=== PATIENT | male | born 1975 | race Caucasian/White ===

== ENCOUNTER 2025-05-21 00:44 | Inpatient (IN) ==
[2025-05-21 01:31] LABS: HCT - HEMATOCRIT 44.2 % (42.0-52.0); HGB - HEMOGLOBIN 15.1 g/dL (14.0-18.0); MEAN PLATELET VOLUME 10.0 fL (7.4-11.4); NRBC ABSOLUTE COUNT (AUTO) 0.00 x10^3/uL; NUCLEATED RED BLOOD CELLS AUTO 0.0 /100WBC; PLT - PLATELET COUNT 190 10^3/uL (130-450); RED CELL DISTRIBUTION WIDTH 13.2 % (12.0-15.0)
[2025-05-21] MEDS: KETOROLAC 30 MG/ML VIAL IVP STA (01:39)
[2025-05-21] MEDS: DEXAMETHASONE 10 MG/ML VIAL IVP STA ×2 (01:39→02:05)
[2025-05-21] MEDS: HYDROmorphone 1 MG/ML CARPUJECT IVP STA ×4 (01:39→09:36)
[2025-05-21] MEDS: ONDANSETRON 4 MG/2 ML VIAL IVP STA (01:39)
[2025-05-21 01:48] LABS: ALT ALANINE AMINOTRANSFERASE 29.0 IU/L (10-60); AST ASPARTATE AMINOTRANSFERASE 26.0 IU/L (10-42); BUN - BLOOD UREA NITROGEN 9.0 mg/dL (6-20); CARBON DIOXIDE - CO2 29.0 mmol/L (21-32); CREATININE 0.8 mg/dL (0.6-1.3); GFR - MDRD 102.0 (>89)
--- NOTE | 2025-05-21 04:58 | ED Physician Documentation ---
PD HPI ABD PAIN Stated complaint Stated Complaint: ABD PX-UMBILICAL HERNIA Chief complaint Chief Complaint: Abd Pain History obtained from History obtained from: Patient Additional information Additional information: The patient comes to the emergency department chief complaint of pain in his hernia site that started tonight. He states it feels like it just suddenly "popped out". He cannot get it to go back in. He states that normally protrudes but he can usually push it in, but not this time. Meds/Allgy Home Medications Ambulatory Orders Medication Instructions Recorded Confirmed carbamazepine 200 mg tablet See Rx Instructions .Route .COMPLEX 05/09/24 05/22/25 duloxetine 30 mg capsule,delayed 60 mg (2 x 30 mg) PO DAILY #60 caps 03/16/25 05/22/25 release fluvoxamine 100 mg tablet 200 mg (2 x 100 mg) PO DAILY #60 03/16/25 05/22/25 tabs hydroxyzine HCl 25 mg tablet 25 mg PO DAILY 05/22/25 1 07/22/24 quetiapine 300 mg tablet (Seroquel) 600 mg PO HS 05/2205/22/25 Allergies Allergies Allergy/AdvReac Type Severity Reaction Status Date / Time No Known Drug Allergies Allergy Verified 05/21/25 07:22 PFSH Active Problems All Active Problems (Updated 05/24/25 @ 00:01 by ) BRANDON (acute kidney injury) (Acute) Acute hypoxemic respiratory failure (Acute) Troponin I above reference range (Acute) Tracheomalacia (Acute) Medical History Medical History (Updated 05/24/25 @ 00:01 by ) Sleep paralysis Thrashes as he is going to sleep. Will also thrash in the middle of sleep. Depression Bipolar 1 disorder Super obesity lap band ~2004 in [place] Anxiety HLD (hyperlipidemia) HTN (hypertension) Surgical History Surgical History (Updated 05/21/25 @ 18:36 by Key Laurent MD) Hx of laparoscopic gastric banding Family History Family History (Updated 05/21/25 @ 18:38 by Key Laurent MD) Father Cancer Mother CAD (coronary artery disease) Hip fracture due to osteoporosis Brother Diabetes Obesity Ventral hernia Sister Diabetes Ventral hernia Sister Diabetes Ventral hernia Son Ventral hernia Obesity Social History Social History (Updated 05/21/25 @ 18:41 by Key Laurent MD) Smoking Status: Never smoker Second hand tobacco smoke exposure: No Do you dip or chew tobacco?: No Do you vape?: No Patient requests smoking cessation consult: No Initiate information on smoking cessation: No Living arrangement: At home Marital Status: Living Condition: With spouse/s.o. Support Person: Yes Living Situation Details: Lives in his own home. Moved here a year ago from [facility] to live closer to his brother. Has a Durable Power of Sales Representative Trainee for Health Care?: No DPOA on file?: No Has Health Care Directive?: No Health Care Directive on file?: No DPOA / Health Care Directive - Additional Notes: to his fourth . Marissa Tapia. 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 [employer] Retired: No Service: No POLST Patient has POLST: No Exam Exam Vital Signs: Vital Signs x48h Temp Pulse Resp BP Pulse Ox 05/21/25 03:00 90 18 95 05/21/25 00:46 36.9 C 101 H 22 194/133 H 100 Constitutional no apparent distress Morbidly obese patient, appears mildly uncomfortable, otherwise no apparent distress HENMT normocephalic, head/scalp atraumatic, external nose normal and oral mucous membranes normal Eyes EOMs intact bilaterally Neck/C-Spine visual inspection normal and supple Respiratory breath sounds equal bilaterally, normal respiratory effort and clear to auscultation bilaterally Cardiovascular normal heart rate noted, regular rhythm noted and no edema Gastrointestinal abdomen soft to palpation and nontender to palpation Morbidly obese abdomen, large midline hernia around the area of the umbilicus noted with large area of protrusion. The hernia sac is soft and palpably full of bowel. Unable to reduce or even find the hernia opening. No discoloration. Genitourinary no CVA tenderness Extremities normal to inspection Neurology Alert, grossly intact Psychiatry mental status grossly normal Skin skin color normal Results Vitals Vitals: Oxygen O2 Source Mechanical ventilator Labs Labs: Microbiology 05/22/25 10:22 Blood Culture - Preliminary Blood - Right Hand NO GROWTH AFTER 1 DAY 05/22/25 10:22 Blood Culture - Preliminary Blood - Arterial Line NO GROWTH AFTER 1 DAY Laboratory Tests 05/21/25 05/21/25 05/21/25 01:25 16:01 16:30 WBC 6.2 RBC 5.16 Hgb 15.1 Hct 44.2 MCV 85.7 MCH 29.3 MCHC 34.2 RDW 13.2 Plt Count 190 MPV 10.0 Neut # (Auto) 3.9 Lymph # (Auto) 1.5 Toole # (Auto) 0.6 Eos # (Auto) 0.1 Baso # (Auto) 0.1 Absolute Nucleated RBC 0.00 Nucleated RBC % 0.0 Bld Gas Analysis Time Sample Site ABG pH ABG pCO2 ABG pO2 ABG HCO3 ABG Total CO2 ABG O2 Saturation ABG Base Excess Giancarlo Test VBG pH Ionized Calcium Respiration Rate O2 Delivery Device Vent Mode FiO2 Tidal Volume PEEP Sodium 134 L 133 L Potassium 3.8 4.2 Chloride 99 L 99 L Carbon Dioxide 29 27 Anion Gap 6.0 7.0 BUN 9 11 Creatinine 0.8 1.0 Estimated GFR (MDRD) 102 78 L Glucose 109 H 147 H Calcium 9.2 8.6 Phosphorus Magnesium Total Bilirubin 0.4 0.6 AST 26 23 ALT 29 27 Alkaline Phosphatase 66 65 Troponin I High Sens 18.5 20.4 H* Total Protein 7.1 7.3 Albumin 4.2 4.2 Globulin 2.9 3.1 Albumin/Globulin Ratio 1.4 1.4 Lipase 25 Urine Color Urine Clarity Urine pH Ur Specific [place] Urine Protein Urine Glucose (UA) Urine Ketones Urine Occult Blood Urine Nitrite Urine Bilirubin Urine Urobilinogen Ur Leukocyte Esterase Urine RBC Urine WBC Ur Squamous Epith Cells Urine Bacteria U Random Total Protein Urine Creatinine Urine Sodium Nasal Screen MRSA (PCR) NEGATIVE 05/21/25 05/21/25 05/21/25 16:31 16:37 18:25 WBC 12.1 H RBC 5.12 Hgb 14.7 Hct 45.2 MCV 88.3 MCH 28.7 MCHC 32.5 RDW 13.3 Plt Count 220 MPV 10.3 Neut # (Auto) 10.4 H Lymph # (Auto) 0.9 L Toole # (Auto) 0.7 Eos # (Auto) 0.0 Baso # (Auto) 0.0 Absolute Nucleated RBC 0.00 Nucleated RBC % 0.0 Bld Gas Analysis Time 1647 18:35 Sample Site A-LINE A-LINE ABG pH 7.32 L 7.36 ABG pCO2 52 H 48 H ABG pO2 89 86 ABG HCO3 27.2 H 26.9 H ABG Total CO2 28.8 28.3 ABG O2 Saturation 97 98 ABG Base Excess 0.9 1.1 Giancarlo Test NOT APPLICABLE NOT APPLICABLE VBG pH Ionized Calcium Respiration Rate 16 18 O2 Delivery Device VENTILATOR VENTILATOR Vent Mode ASSIST/CONTROL ASSIST/CONTROL FiO2 70.00 60.00 Tidal Volume 540 500 PEEP 5 5 Sodium Potassium Chloride Carbon Dioxide Anion Gap BUN Creatinine Estimated GFR (MDRD) Glucose Calcium Phosphorus Magnesium Total Bilirubin AST ALT Alkaline Phosphatase Troponin I High Sens Total Protein Albumin Globulin Albumin/Globulin Ratio Lipase Urine Color Urine Clarity Urine pH Ur Specific [place] Urine Protein Urine Glucose (UA) Urine Ketones Urine Occult Blood Urine Nitrite Urine Bilirubin Urine Urobilinogen Ur Leukocyte Esterase Urine RBC Urine WBC Ur Squamous Epith Cells Urine Bacteria U Random Total Protein Urine Creatinine Urine Sodium Nasal Screen MRSA (PCR) 05/21/25 05/21/25 05/22/25 19:13 20:40 04:42 WBC RBC Hgb Hct MCV MCH MCHC RDW Plt Count MPV Neut # (Auto) Lymph # (Auto) [place]ole # (Auto) Eos # (Auto) Baso # (Auto) Absolute Nucleated RBC Nucleated RBC % Bld Gas Analysis Time 2046 Sample Site A-LINE ABG pH 7.38 ABG pCO2 46 H ABG pO2 95 ABG HCO3 27.3 H ABG Total CO2 28.7 ABG O2 Saturation 99 H ABG Base Excess 1.9 Giancarlo Test NOT APPLICABLE VBG pH 7.398 Ionized Calcium 1.09 Respiration Rate 20 O2 Delivery Device VENTILATOR Vent Mode ASSIST/CONTROL FiO2 60.00 Tidal Volume 500 PEEP 5 Sodium Potassium 4.5 Chloride Carbon Dioxide Anion Gap BUN Creatinine Estimated GFR (MDRD) Glucose Calcium Phosphorus 5.4 H Magnesium 2.1 Total Bilirubin AST ALT Alkaline Phosphatase Troponin I High Sens 30.7 H* Total Protein Albumin Globulin Albumin/Globulin Ratio Lipase Urine Color Urine Clarity Urine pH Ur Specific [place] Urine Protein Urine Glucose (UA) Urine Ketones Urine Occult Blood Urine Nitrite Urine Bilirubin Urine Urobilinogen Ur Leukocyte Esterase Urine RBC Urine WBC Ur Squamous Epith Cells Urine Bacteria U Random Total Protein Urine Creatinine Urine Sodium Nasal Screen MRSA (PCR) 05/22/25 05/22/25 05/22/25 05:35 07:30 12:35 WBC 9.0 RBC 4.17 L Hgb 12.6 L Hct 37.4 L MCV 89.7 MCH 30.2 MCHC 33.7 RDW 13.7 Plt Count 171 MPV 10.4 Neut # (Auto) 6.8 H Lymph # (Auto) 1.1 L [place]ole # (Auto) 1.1 H Eos # (Auto) 0.0 Baso # (Auto) 0.0 Absolute Nucleated RBC 0.00 Nucleated RBC % 0.0 Bld Gas Analysis Time 05:43 Sample Site A-LINE ABG pH 7.39 ABG pCO2 44 ABG pO2 77 L ABG HCO3 26.5 H ABG Total CO2 27.8 ABG O2 Saturation 96 ABG Base Excess 1.3 Giancarlo Test NOT APPLICABLE VBG pH Ionized Calcium Respiration Rate 20 O2 Delivery Device VENTILATOR Vent Mode ASSIST/CONTROL FiO2 70.00 Tidal Volume 500 PEEP Sodium 133 L Potassium 4.5 Chloride 101 Carbon Dioxide 25 Anion Gap 7.0 BUN 20 Creatinine 1.7 H Estimated GFR (MDRD) 43 L Glucose 114 H Calcium 7.9 L Phosphorus Magnesium Total Bilirubin 0.8 AST 38 ALT 22 Alkaline Phosphatase 47 Troponin I High Sens 52.9 H* Total Protein 6.0 L Albumin 3.4 Globulin 2.6 Albumin/Globulin Ratio 1.3 Lipase Urine Color DARK YELLOW Urine Clarity CLEAR Urine pH 6.0 Ur Specific [place] >=1.030 H Urine Protein 30 H Urine Glucose (UA) NEGATIVE Urine Ketones NEGATIVE Urine Occult Blood MODERATE Urine Nitrite NEGATIVE Urine Bilirubin NEGATIVE Urine Urobilinogen 0.2 (NORMAL) Ur Leukocyte Esterase NEGATIVE Urine RBC 11-25 H Urine WBC 0-3 Ur Squamous Epith Cells RARE Squamous Urine Bacteria Rare U Random Total Protein 86 Urine Creatinine 209.9 Urine Sodium 11.9 Nasal Screen MRSA (PCR) PD Medical Decision Making ED course Complexity details: reviewed old records, reviewed results, considered differential and d/w patient ED course: I tried during exam to reduce the hernia, but was unable to get it to go back in. The patient was treated with Toradol and Decadron to try to bring down inflammation and he was placed in with his supine position to try to allow his hernia to reduce on its own. The pt in the meantime was worked up with labs, which were unremarkable, and CT abd/pelvis. This showed an incarcerated hernia with resultant SBO and omental infarction. Hernia opening was 3.6 cm, compared to width of herniated tissue, which was 18cm. I discussed the case with Dr. Bustos, who was healthcare consultant for surgery, and he stated he would come in and see the pt. The pt is signed out to Dr. Minor at change of shift, pending this, but with likely plan of transfer to OR. Discharge Plan Discharge Patient Disposition: ED Transfer to [facility] Condition: Serious Clinical Impression: Incarcerated hernia, SBO (small bowel obstruction) Interventions: ED Admission Assessment Last Done: 05/21/25 10:53 Vitals documented within 30 minutes of discharge?: Yes (Vital taken 15min before leaving with transport )
[2025-05-21] MEDS: HYDROmorphone 2 MG/ML VIAL IVP STA (06:31)
--- NOTE | 2025-05-21 09:30 | ED Physician Documentation ---
ED Addendum Addendum Addendum: The patient did have return of pain and was given an additional dose of hydromorphone 1 mg IV. He had not had any IV fluids overnight and so I ordered lactated Ringer's at 250/h. He is not have any nausea currently. Given his pain is from incarceration of the hernia, I also provided a antispasmodic with Levsin sublingually. The surgeon did come to see the patient. We did not have any beds available overnight and into this morning. I checked with the hospitalist and they are anticipating 1 likely discharged this afternoon in the ICU has a nurse coming in at 3 PM so they will be able to open up another ICU bed. They did check with the nursing traffic maintenance supervisor and felt that given the timing currently at 9:00, with the OR and recovery time and PACU nursing, they should be able to take the patient and placed him into the ICU subsequently at 3. Otherwise consideration would have been for transferring the patient. Discharge Plan Discharge Patient Disposition: ED Transfer to [facility] Condition: Serious Clinical Impression: Incarcerated hernia, SBO (small bowel obstruction) Prescriptions: No Action duloxetine 60 mg capsule,delayed release(DR/EC) 120 mg PO DAILY Patient Comments: TAKE 2 CAPSULES BY MOUTH ONCE DAILY carbamazepine 200 mg tablet 600 mg PO DAILY Patient Comments: 200mg in the am, 600mg at bedtime fluvoxamine 100 mg tablet 100 mg PO HS Patient Comments: TAKE 1 TABLET BY MOUTH ONCE DAILY AT BEDTIME quetiapine 200 mg tablet 400 mg PO BID Patient Comments: 200mg in the am, 600mg at HS carbamazepine [Tegretol] 200 mg tablet 800 mg PO QPM quetiapine [Seroquel] 300 mg tablet 600 mg PO DAILY Qty: 60 1RF fluvoxamine 100 mg tablet 200 mg PO DAILY Qty: 60 1RF duloxetine 30 mg capsule,delayed release(DR/EC) 60 mg PO DAILY Qty: 60 1RF carbamazepine 200 mg tablet extended release 12 hr 1,000 mg PO BID Qty: 150 1RF Print Language: Faroese Stand Alone Forms: PCP List
[2025-05-21] MEDS: LACTATED RINGERS 1,000 ML IV STA (09:36)
[2025-05-21] MEDS: HYOSCYAMINE SL 0.125 MG TABLET SL STA (09:36)
--- NOTE | 2025-05-21 09:43 | CONSULTATION NOTE ---
Referring Provider Name of Referring Provider:: Stephanie Jade MD Consult Date: 05/21/25 Chief Complaint Chief Complaint Chief Complaint: Incarcerated umbilical hernia History of Present Illness Admitted From Admitted From:: Home History Obtained From Records Reviewed: Yes History obtained from: Patient and chart Exam Limitations: None History of Present Illness HPI Comment/Other: Patient is a very pleasant 50-year-old male who is evaluated in room 9 at [facility] emergency room at the request of Dr. Layton Marques for an incarcerated umbilical hernia. The patient's been aware of the umbilical hernia for approximately 20 years and he has always been able to push it back in but yesterday he was unable to do so. The inability to push the hernia back in became associated with abdominal pain. There is been no nausea and vomiting. 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 He states up until about a year and 100 days ago he used to smoke a large amount of pot. He developed psychosis as a result. He also admits to being bipolar. He is concerned about taking his medications. I explained that he will be given his medications here in the hospital. He has never been a cigarette smoker. He drank alcohol in the past but he states that not to any great degree. He is also part of [employer] Anonymous. PFSH Active Problems All Active Problems (Updated 05/21/25 @ 09:53 by Bernardino Bustos MD) Incarcerated umbilical hernia (Acute) SBO (small bowel obstruction) (Acute) Medical History Medical History (Updated 05/21/25 @ 09:53 by Bernardino Bustos MD) Anxiety HLD (hyperlipidemia) HTN (hypertension) Social History Social History Second hand tobacco smoke exposure: No Do you dip or chew tobacco?: No Do you vape?: No Patient requests smoking cessation consult: No Initiate information on smoking cessation: No Living arrangement: At home Level: Independent Do you feel safe in your home environment?: Yes History of physical, verbal, emotional, or financial abuse?: No Frequency: Occasional Substance Use: cannabis (any form) POLST Patient has POLST: No Meds/Allgy Home Medications Ambulatory Orders Medication Instructions Recorded Confirmed carbamazepine 200 mg tablet 600 mg PO DAILY 05/09/24 1 07/21/24 duloxetine 60 mg capsule,delayed 120 mg PO DAILY 05/0903/16/25 release fluvoxamine 100 mg tablet 100 mg PO HS 05/09/24 quetiapine 200 mg tablet 400 mg PO BID 05/09/2403/16 carbamazepine 200 mg tablet 800 mg PO QPM 03/16/25 (Tegretol) carbamazepine 200 mg 1,000 mg (5 x 200 mg) PO BID #150 03/16/25 05/21/25 tablet,extended release,12 hr tabs duloxetine 30 mg capsule,delayed 60 mg (2 x 30 mg) PO DAILY #60 caps 03/16/25 05/21/25 release fluvoxamine 100 mg tablet 200 mg (2 x 100 mg) PO DAILY #60 03/16/25 tabs quetiapine 300 mg tablet (Seroquel) 600 mg (2 x 300 mg ) PO DAILY #60 03/16/25 tabs Allergies Allergies Allergy/AdvReac Type Severity Reaction Status Date / Time No Known Drug Allergies Allergy Verified 05/21/25 07:22 Results Lab Results 05/21/25 01:25 05/21/25 01:25 Other Lab Results: Lab Results x24hrs 05/21/25 Range/Units 01:25 WBC 6.2 (4.8-10.8) x10^3/uL RBC 5.16 (4.70-6.10) 10^6/uL Hgb 15.1 (14.0-18.0) g/dL Hct 44.2 (42.0-52.0) % MCV 85.7 (80.0-94.0) fL MCH 29.3 (27.0-31.0) pg MCHC 34.2 (32.0-36.0) g/dL RDW 13.2 (12.0-15.0) % Plt Count 190 (130-450) 10^3/uL MPV 10.0 (7.4-11.4) fL Neut # (Auto) 3.9 (1.5-6.6) 10^3/uL Lymph # (Auto) 1.5 (1.5-3.5) 10^3/uL [place] # (Auto) 0.6 (0.0-1.0) 10^3/uL Eos # (Auto) 0.1 (0.0-0.7) 10^3/uL Baso # (Auto) 0.1 (0.0-0.1) 10^3/uL Absolute Nucleated RBC 0.00 x10^3/uL Nucleated RBC % 0.0 /100WBC Sodium 134 L (135-145) mmol/L Potassium 3.8 (3.5-4.5) mmol/L Chloride 99 L (101-111) mmol/L Carbon Dioxide 29 (21-32) mmol/L Anion Gap 6.0 (6-13) BUN 9 (6-20) mg/dL Creatinine 0.8 (0.6-1.3) mg/dL Estimated GFR (MDRD) 102 (>89) Glucose 109 H (74-104) mg/dL Calcium 9.2 (8.5-10.3) mg/dL Total Bilirubin 0.4 (0.2-1.0) mg/dL AST 26 (10-42) IU/L ALT 29 (10-60) IU/L Alkaline Phosphatase 66 (42-121) IU/L Troponin I High Sens 18.5 (2.3-19.7) ng/L Total Protein 7.1 (6.4-8.9) g/dL Albumin 4.2 (3.2-5.5) g/dL Globulin 2.9 (2.1-4.2) g/dL Albumin/Globulin Ratio 1.4 (1.0-2.2) Lipase 25 (11-82) U/L Review of Systems CONSTITUTIONAL: No weight loss, fever, chills, weakness or fatigue. HEENT: Eyes: No visual loss, blurred vision, double vision or yellow sclerae. Ears, Nose, Throat: No hearing loss, sneezing, congestion, runny nose or sore throat. SKIN: No rash or itching. CARDIOVASCULAR: No chest pain, chest pressure or chest discomfort. No palpitations or edema. No change in cardiovascular endurance. RESPIRATORY: No shortness of breath (exertional or resting), cough or sputum. GASTROINTESTINAL: No anorexia, nausea, vomiting or diarrhea. GENITOURINARY: No dysuria, urgency, frequency, nocturia. NEUROLOGICAL: No headache, dizziness, syncope, paralysis, ataxia, numbness or tingling in the extremities. No change in bowel or bladder control. No memory loss. MUSCULOSKELETAL: No muscle, back pain, joint pain or stiffness. HEMATOLOGIC: No anemia, bleeding or bruising. LYMPHATICS: No enlarged nodes. No history of splenectomy. PSYCHIATRIC: POSITIVE bipolar and anxiety. ENDOCRINOLOGIC: No reports of sweating, cold or heat intolerance. No polyuria or polydipsia. ALLERGIES: No history of asthma, hives, eczema or rhinitis. Exam Exam Vital Signs: Vital Signs x48h Pulse Resp BP Pulse Ox 05/21/25 09:00 90 20 176/111 H 99 05/21/25 07:00 90 20 184/107 H 98 05/21/25 05:59 92 28 H 193/110 H 05/21/25 03:00 90 18 95 General: 50-year old male, appears stated age, well developed, well nourished HEENT: Normocephalic, atraumatic, extraocular movement intact, mucous membranes pink and moist, sclera anicteric and not injected, tongue midline, Mallampati 2, very poor dentition missing multiple teeth, meadows arreola mustache, meadows hair Neck: Supple without pain on palpation, mass or bruit Cardiac: Regular rate and rhythm without rub, gallop, or murmur Chest: Clear to auscultation bilaterally, distant due to body habitus Abdomen: Soft, nontender, normoactive bowel sounds, due to body habitus I cannot appreciate any hepatomegaly or splenomegaly, large incarcerated umbilical hernia with redness of the overlying skin, the hernia itself is the size of a small volleyball, there is no ecchymosis Genitourinary: Deferred Rectal: Deferred Extremities: No gross neurovascular problem, no clubbing, cyanosis or edema Gait: No gross motor deficit, 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 The indications, procedure, alternatives including not repairing the hernia, and risks including but not limited to infection, bleeding, nerve injury, and were fully explained to the patient and all questions were fully answered. I explained that I would use mesh only if there was no evidence of infection. Even with mesh, due to his body habitus there is a high risk of recurrence. If I cannot use mesh the likelihood of recurrence is 100%. I would also try and remove some of the excess skin to give him a better cosmetic result. I explained that following the surgery I did not want him lifting anything over 15 pounds for 6 weeks to allow the area to heal optimally and decrease the likelihood that the hernia would recur. Verbal and written consent was obtained. The patient in preparation for his surgery will be nothing by mouth, and receive 3 g of Ancef preoperatively for prophylaxis against surgical infection. I also asked the patient to let me know if there is any way we can make his stay at [facility] more comfortable and he stated that he would let me know. Due to the fact that there is bowel stuck within this hernia it will be important to ensure that the patient has bowel function prior to sending him home. I will have him wear an abdominal binder following this operation. 45 minutes of [id number] time was spent with the patient with over 80% spent in discussion, coordination of his care, and completion of the requisite paperwork CPT 23661 Lab Results 05/21/25 01:25 05/21/25 01:25
--- NOTE | 2025-05-21 10:02 | ANESTHESIA PROCEDURE NOTE ---
Pre-Anesthesia VS, & Labs Diagnosis Surgical Diagnosis:: incarcerated umbilical hernia Procedure Procedure: repair of incarcerated umbilical hernia Vitals Vital Signs: Temp Pulse Resp BP Pulse Ox 99.3 C H 112 H 18 162/99 H 93 05/21/25 15:25 05/21/25 16:20 05/21/25 15:24 05/21/25 15:50 05/21/25 15:50 Lab Results Current Lab Results: Laboratory Tests 05/21/25 16:37: Bld Gas Analysis Time 1647, Sample Site A-LINE, ABG pH 7.32 L, A BG pCO2 52 H, ABG pO2 89, ABG HCO3 27.2 H, ABG Total CO2 28.8, ABG O2 Saturation 97, ABG Base Excess 0.9, Giancarlo Test NOT APPLICABLE, Respiration Rate 16, O2 Delivery Device VENTILATOR, Vent Mode ASSIST/CONTROL, FiO2 70.00, Tidal Volume 540, PEEP 5 05/21/25 16:31: WBC 12.1 H, RBC 5.12, Hgb 14.7, Hct 45.2, MCV 88.3, MCH 28.7, MCHC 32.5, RDW 13.3, Plt Count 220, MPV 10.3, Neut # (Auto) 10.4 H, Lymph # (Auto) 0.9 L, Yates # (Auto) 0.7, Eos # (Auto) 0.0, Baso # (Auto) 0.0, Absolute Nucleated RBC 0.00, Nucleated RBC % 0.0 05/21/25 16:01: Sodium 133 L, Potassium 4.2, Chloride 99 L, Carbon Dioxide 27, Anion Gap 7.0, BUN 11, Creatinine 1.0, Estimated GFR (MDRD) 78 L, Glucose 147 H, Calcium 8.6, Total Bilirubin 0.6, AST 23, ALT 27, Alkaline Phosphatase 65, T roponin I High Sens 20.4 H*, Total Protein 7.3, Albumin 4.2, Globulin 3.1, Albumin/Globulin Ratio 1.4 05/21/25 01:25: WBC 6.2, RBC 5.16, Hgb 15.1, Hct 44.2, MCV 85.7, MCH 29.3, MCHC 34.2, RDW 13.2, Plt Count 190, MPV 10.0, Neut # (Auto) 3.9, Lymph # (Auto) 1.5, Yates # (Auto) 0.6, Eos # (Auto) 0.1, Baso # (Auto) 0.1, Absolute Nucleated RBC 0.00, Nucleated RBC % 0.0, Sodium 134 L, Potassium 3.8, Chloride 99 L, Carbon Dioxide 29, Anion Gap 6.0, BUN 9, Creatinine 0.8, Estimated GFR (MDRD) 102, G lucose 109 H, Calcium 9.2, Total Bilirubin 0.4, AST 26, ALT 29, Alkaline Phosphatase 66, Troponin I High Sens 18.5, Total Protein 7.1, Albumin 4.2, Globulin 2.9, Albumin/Globulin Ratio 1.4, Lipase 25 05/21/25 16:31 05/21/25 16:01 Meds/Allgy Home Medications Ambulatory Orders Medication Instructions Recorded Confirmed carbamazepine 200 mg tablet 600 mg PO DAILY 05/09/24 1 07/21/24 duloxetine 60 mg capsule,delayed 120 mg PO DAILY 05/0903/16/25 release fluvoxamine 100 mg tablet 100 mg PO HS 05/09/24 quetiapine 200 mg tablet 400 mg PO BID 05/09/2403/16 carbamazepine 200 mg tablet 800 mg PO QPM 03/16/25 (Tegretol) carbamazepine 200 mg 1,000 mg (5 x 200 mg) PO BID #150 03/16/25 05/21/25 tablet,extended release,12 hr tabs duloxetine 30 mg capsule,delayed 60 mg (2 x 30 mg) PO DAILY #60 caps 03/16/25 05/21/25 release fluvoxamine 100 mg tablet 200 mg (2 x 100 mg) PO DAILY #60 03/16/25 tabs quetiapine 300 mg tablet (Seroquel) 600 mg (2 x 300 mg ) PO DAILY #60 03/16/25 tabs Allergies Allergies Allergy/AdvReac Type Severity Reaction Status Date / Time No Known Drug Allergies Allergy Verified 05/21/25 07:22 PFSH Active Problems All Active Problems (Updated 05/21/25 @ 10:54 by ) Incarcerated hernia (Acute) Incarcerated umbilical hernia (Acute) SBO (small bowel obstruction) (Acute) Medical History Medical History (Updated 05/21/25 @ 10:54 by ) Anxiety HLD (hyperlipidemia) HTN (hypertension) Social History Social History Smoking Status: Unknown if ever smoked Second hand tobacco smoke exposure: No Do you dip or chew tobacco?: No Do you vape?: No Patient requests smoking cessation consult: No Initiate information on smoking cessation: No Living arrangement: At home Level: Independent Do you feel safe in your home environment?: Yes History of physical, verbal, emotional, or financial abuse?: No Frequency: Occasional Substance Use: cannabis (any form) POLST Patient has POLST: No Anesthesia Exam (Expanded) Exam General: Alert, Oriented x3, Cooperative and Moderate distress Dental: WNL (few missing) Mouth Opening: Greater than 4 Fingerbreadths Neck Mobility: Normal Mallampati classification: I Thyromental Distance: greater than 6 cm Respiratory: Lungs clear and Decreased breath sounds Cardiovascular: Regular rate Exam Exam Vital Signs: Vital Signs x48h Temp Pulse Resp BP Pulse Ox 05/21/25 16:20 112 H 05/21/25 15:50 105 H 162/99 H 93 05/21/25 15:40 105 H 173/99 H 90 L 05/21/25 15:35 105 H 184/111 H 88 L 05/21/25 15:30 108 H 171/86 H 88 L 05/21/25 15:25 99.3 C H 05/21/25 15:24 100 142/94 H 88 L 05/21/25 15:24 99 142/94 H 86 L 05/21/25 15:24 99 18 142/94 H 87 L 05/21/25 15:24 100 18 142/94 H 87 L 05/21/25 15:24 99 18 85 L 05/21/25 15:23 99.3 C H 97 16 85 L Plan Problem List (1) Incarcerated umbilical hernia: (2) SBO (small bowel obstruction): Plan CPT 80534 Plan Anesthesia Type: General Consent for Procedure(s) Verified and Reviewed: Yes Code Status: Attempt Resuscitation ASA Classification ASA classification: 4-Incapacitating disease Is this case an emergency?: Yes
[2025-05-21] MEDS ORDERED: BUPIVACAINE 0.5%-EPI 1:200000 PF 10 ML VIAL ONE (10:06)
[2025-05-21] MEDS ORDERED: LACTATED RINGERS 1,000 ML IV PRN (10:14)
[2025-05-21] MEDS ORDERED: MIDAZOLAM 2 MG/2 ML VIAL ONE ×4 (10:17→12:23)
[2025-05-21] MEDS ORDERED: fentaNYL 100 MCG/2 ML VIAL ONE ×2 (10:17→11:48)
[2025-05-21] MEDS ORDERED: PROPOFOL 200 MG/20 ML VIAL IVP ONE (10:17)
[2025-05-21] MEDS ORDERED: ROCURONIUM 50 MG/5 ML VIAL ONE ×3 (10:17→14:05)
[2025-05-21] MEDS ORDERED: LIDOCAINE-PF 2% 10 ML AMP SUBQ ONE (10:18)
[2025-05-21] MEDS ORDERED: SEVOFLURANE 250 ML LIQUID INH ONE (10:26)
[2025-05-21] MEDS ORDERED: SUGAMMADEX 200 MG/2 ML VIAL IVP ONE (11:08)
--- NOTE | 2025-05-21 11:31 | CT Report ---
PROCEDURE: CT Abdomen/Pelvis W INDICATIONS: hernia pain CONTRAST: 100 ML OMNI 300 TECHNIQUE: Helical axial CT of the abdomen and pelvis was obtained after an intravenous contrast injection and reformatted in multiple planes. COMPARISON: None FINDINGS: Lower chest: Unremarkable. Liver: No solid mass. Gallbladder: Unremarkable Biliary tree: No intrahepatic or extrahepatic dilation Spleen: No splenomegaly. Pancreas: No pancreatic ductal dilation. Adrenals: No adrenal nodule. Kidneys and ureters: No hydronephrosis. No renal cystic lesion which requires follow up. No solid mass. Stomach, bowel and peritoneum: Gastric lap band in place. Periumbilical ventral hernia contains a loop of colon. Upstream fecal retention. No abscess or free air. Peritoneum: No free fluid. Lymph nodes: No mesenteric or retroperitoneal adenopathy. No pelvic adenopathy. Vasculature: No infrarenal aortic aneurysm. Reproductive organs: Unremarkable. Bladder: No abnormal wall thickening. Bones: No aggressive osseous lesion. Other: Small bilateral inguinal hernias IMPRESSION: Ventral periumbilical hernia contains a loop of colon with findings concerning for obstruction. Advise surgical consultation. Note: This final report is concordant with the preliminary after-hours interpretation provided by [facility] Reviewed by: Mason Templeton MD on 05/21/2025 10:28 AM [facility] Approved by: Mason Templeton MD on 05/21/2025 10:28 AM [facility] Station ID: [id number]
[2025-05-21] MEDS ORDERED: LIDOCAINE OINTMENT 5% 35.44 GM TUBE ONE (11:34)
[2025-05-21] MEDS ORDERED: LIDOCAINE TOPICAL 4% 50 ML BOTTLE ONE (11:36)
[2025-05-21] MEDS ORDERED: DEXMEDETOMIDINE 200 MCG/2 ML VIAL ONE (12:03)
--- NOTE | 2025-05-21 15:58 | OPERATIVE REPORT ---
Operative Report General Procedure Data: Operation Date: 05/21/25 10:30 Proposed Procedures p Umbilical Hernia Repair(Not Applicable) - Bernardino Bustos MD Actual Procedures p INCARCERATED Umbilical Hernia Repair(Not Applicable) - Bernardino Bustos MD Pre-Op Diagnosis: INCARCERATED UMBILICIAL HERNIA Anesthesia Type General Case Staff Anesthesia Provider: Juliann Lam Anesthesia Provider: Hafsa Lara Case Times Procedure Start: 05/21/25 13:28 Time out: 05/21/25 13:27 Implants MESH VENTRIO 13.8CMx17.8CM Other Other Information/Narrative: Patient Name: Joey Mccann Patient date: 1975 Patent MR number: [id number] Date of procedure: 05/21/2025 Preoperative Diagnosis/Indications: Incarcerated umbilical hernia with bowel causing bowel obstruction Postoperative Diagnosis: Incarcerated umbilical hernia with colon and omentum in hernia sac causing bowel obstruction Procedure: Umbilical herniorrhaphy (the hernia defect measured 4 x 4 cm intraoperatively), CPT 08920 Fluids: 1800 mL of crystalloid, the patient left the operating room on 4 mcg per minute of Levophed EBL: 50 mL Urine output: Please refer to medical record for urine output as the Kumar was placed late in the procedure. Drains: None Findings: A 4 x 4 cm defect with transverse colon and a large amount of omentum present in the hernia sac. The hernia sac itself measured 16 cm in height and 17 cm in width and approximately 15 cm in depth Complications: None Surgeon/Dictated by: Bernardino Bustos MD Internal Security Manager: None Survey Research Teacher: Hafsa Lara CRNA assisted by Georgi Lam CRNA Anesthesia type: General Endotracheal +30 mL half percent Marcaine with epinephrine Procedure: After verbal and written informed consent was obtained detailing the operation, the alternatives the operation including no operation, risks of infection, bleeding requiring transfusion with its risks, nerve injury, and and after I met with the patient confirming the surgery and the site of surgery, the patient was brought to the operative suite and placed supine on the operating table. Great care was taken to avoid pressure points to prevent pressure necrosis or nerve injury. Monitoring devices were applied along with TEDs and pneumatic compression stockings (to prevent DVT). An intravenous line was started and anesthesia was maintained throughout the case. The patient was monitored for cardiac, blood pressure, and oxygen saturation continuously. The patient received preoperative antibiotics for surgical prophylaxis. His intubation was extraordinarily difficult. Standard general endotracheal anesthesia could not be induced due to the patient's anatomy. Attempts with an LMA were unsuccessful. The patient was then subsequently awakened and Georgi Lam CRNA came to assist. With the aid of a small bronchoscope placed through the endotracheal tube the patient was then subsequently intubated nasotracheally. He initially coughed out the tube and the tube was replaced again using the aid of a small bronchoscope and the endotracheal tube was "hubbed" at the nares. In order to secure the tube this was sutured to the septum using a 2-0 silk suture. This was then subsequently Chucho sampled about the endotracheal tube. Once this occurred the patient then experienced a episode of hypoxia and hypotension. This improved with the administration of Levophed. He was also placed on 100% oxygen. His vitals slowly improved and it was the opinion of everyone in the room that he would be safer to proceed with the operation then to try and transfer him to a higher level of care. Hafsa Lara CRNA then sedated and anesthetized the patient for the entire procedure. The patient was prepped and draped in the usual sterile manner. A "time in" then confirmed that the patient was identified with 3 identifiers (name, date, and medical record number), the history and physical was updated and in the chart, the signed consent confirming the procedure was in the chart, the patient was in the correct position, the aforementioned prophylactic measures were in place or given, we had the correct personnel and equipment to complete the procedure and that anesthesia and the surgical team were given an opportunity to express any concerns. With the agreement of everyone in the room we proceeded with the operation. An elliptial incision was made over the hernia the excess skin was removed from the hernia using Bovie electrocautery. With the skin off the hernia sac was right there. Hemostasis was obtained using Bovie electrocautery. The sac was opened and there was a large amount of omentum with distended veins and a portion of the transverse colon and the hernia sac. Please note that the hernia sac was very large measuring 15 x 16 x 17 cm. It was clear that trying to reduce the hernia contents through a small 4 x 4 cm hole would be impossible and as such I opted to resect a large portion of the omentum using serial application of the LigaSure. With less tissue having to go through the hernia defect I was able to reduce first the transverse colon and then the remaining omentum back through the defect into the abdomen and hold this in place using sponge sticks. The very large hernia sac was then dissected back to the fascial defect and excised. The fascial defect measured 4 cm transversely and 4 cm superoinferiorly. The defect was slightly superior to the umbilicus. The fat in the true umbilical hernia was transected using the Ligasure. Bovie electrocautery was then used to define the fascial defect trimming additional tissue back to the fascia proper. A swipe of the anterior abdominal wall ensured that there was no tissue adherent to the anterior abdominal wall and at this point a [address] ST hernia patch size 13.8 cm x 17.8 cm (Reference #[id number], lot number [id number], use by date 2025-08-26)was placed into the hernia defect transversely and sutured in place circumferentially with 2-0 Vicryl suture. This allowed for overlap of the mesh to the hernia defect superiorly inferiorly and transversely. The reason that I placed this transversely as I felt that the greatest strain on the wound would be transversely. Digital examination of the repair did not reveal any skipped areas. I then resected an additional 7 cm skin on the patient's left-hand side to allow for a more cosmetic curvilinear closure. This was done primarily using Bovie electrocautery. Hemostasis was obtained using Bovie electrocautery. I placed sutures to line up the skin having a distance twice in order to place skin sophie. Once the sophie were in place the sutures were removed. At this point a timeout was performed that confirmed that all counts were correct x2, the procedure that was performed, the blood loss, the IV fluids administered, the patient's condition, and any concerns of the operating team had. Dressings were applied and having tolerated the procedure well, the patient was taken to the intensive care unit. It should be noted that during the performance of this surgery as well as afterwards the patient had a nasogastric tube placed, Kumar placed, central line placed. And due to the difficulties with his intubation and control of his blood pressure it was felt to be much safer to admit him to the intensive care unit. Please note that the aforementioned procedures were either performed by anesthesia or nursing. Additionally once the patient is fully awake and prior to extubation he should have an abdominal binder placed to distribute the pressure and decrease likelihood of wound dehiscence or evisceration. Today's documentation has been created with the assistance of voice recognition software. Therefore, it may contain anomalous punctuation, anomalous independent mis-recognitions, word substitutions, insertions or omissions. Occasional wrong-word or phonetically similar substitutions may also occur all due to the inherent limitations of voice recognition software. I have attempted to correct the above but I recommend that the chart be read carefully to recognize, using context, where the substitutions, insertions or omissions may have occurred.
[2025-05-21] MEDS: ceFAZolin (3G) 3 GM in SODIUM CHLORIDE 0.9% MINIBAG 100 ML IV ONE (16:14)
[2025-05-21] MEDS ORDERED: PROPOFOL 500 MG/50 ML 1,000 MG/100 ML VIAL ONE (16:27)
[2025-05-21 16:38] LABS: ALT ALANINE AMINOTRANSFERASE 27.0 IU/L (10-60); AST ASPARTATE AMINOTRANSFERASE 23.0 IU/L (10-42); BUN - BLOOD UREA NITROGEN 11.0 mg/dL (6-20); CARBON DIOXIDE - CO2 27.0 mmol/L (21-32); CREATININE 1.0 mg/dL (0.6-1.3); GFR - MDRD 78.0 (>89)
[2025-05-21 16:46] LABS: HCT - HEMATOCRIT 45.2 % (42.0-52.0); HGB - HEMOGLOBIN 14.7 g/dL (14.0-18.0); MEAN PLATELET VOLUME 10.3 fL (7.4-11.4); NRBC ABSOLUTE COUNT (AUTO) 0.00 x10^3/uL; NUCLEATED RED BLOOD CELLS AUTO 0.0 /100WBC; PLT - PLATELET COUNT 220 10^3/uL (130-450); RED CELL DISTRIBUTION WIDTH 13.3 % (12.0-15.0)
[2025-05-21 16:47] LABS: ABG BASE EXCESS 0.9 mmol/L (-2.0-3.0); ABG FRACTION OF INSPIRED O2 70.00; ABG HCO3 27.2 mmol/L (22.0-26.0); ABG MODE OF VENTILATION ASSIST/CONTROL; ABG OXYGEN SATURATION 97 % (95-98); ABG PCO2 52 mmHg (34-45); ABG PH 7.32 (7.35-7.45); ABG PO2 89 mmHg (83-108); ABG RESPIRATORY RATE 16 b/min; ABG TCO2 28.8 mmol/L (21.0-29.0)
--- NOTE | 2025-05-21 16:51 | MISCELLANEOUS PROVIDER NOTE ---
Miscellaneous Provider Note - Note: I spoke with his Fantasma at [phone] and explained his surgery, clinical course, expected recovery, and his postoperative instructions regarding not lifting anything heavier than 20 pounds for 6 weeks or approximately the first of the new year. She vocalized understanding and thanked me for my care.
[2025-05-21] MEDS: DEXMEDETOMIDINE 400 MCG/100 ML 100 ML IV SCH (16:56)
[2025-05-21] MEDS: PROPOFOL 1000 MG/100 ML 1,000 MG/100 ML BOTTLE IV SCH (16:56)
[2025-05-21] MEDS: fentaNYL 2,500 MCG/250 ML 2,500 MCG/250 ML BAG IV SCH (16:57)
[2025-05-21] MEDS: PANTOPRAZOLE 40 MG VIAL IVP SCH (17:03)
[2025-05-21] MEDS: NS W/20 MEQ KCL 1,000 ML IV SCH (17:07)
[2025-05-21] MEDS: SODIUM CHLORIDE FLUSH 0.9% 10 ML SYRINGE IVP SCH (17:07)
--- NOTE | 2025-05-21 17:08 | ANESTHESIA POST OP EVALUATION ---
Anesthesia Post Eval Post Anesthesia Eval Vitals: Last Vital Signs Temp 99.3 C H 05/21/25 15:25 Pulse 112 H 05/21/25 16:20 Resp 18 05/21/25 15:24 BP 162/99 H 05/21/25 15:50 Pulse Ox 93 05/21/25 15:50 CV Function Including HR & BP: Stable Pain Control: Satisfactory Nausea & Vomiting: Negative Mental Status: Other (sedated, intubated) Respiratory Status: Airway Patent Hydration Status: Satisfactory Anesthesia Complications: None
--- NOTE | 2025-05-21 17:09 | XRAY Report ---
PROCEDURE: XR Post ET Tube 1V CXR INDICATIONS: Intubation, central line, NG tube TECHNIQUE: Single frontal view of the chest was obtained COMPARISON: None FINDINGS: Instrumentation: Endotracheal tube 5.9 cm above the addison. Nasogastric tube in the stomach. Right IJ central venous line tip in the upper SVC. Heart size, mediastinum and pulmonary vasculature: Heart size enlarged. Moderate vascular congestion Lungs and pleural spaces: Obscuration of the left mid diaphragm Osseous structures: Unremarkable IMPRESSION: Lines and tubes in good position. Cardiomegaly, moderate vascular congestion and left pleural effusion Reviewed by: Mason Templeton MD on 05/21/2025 4:05 PM [facility] Approved by: Mason Templeton MD on 05/21/2025 4:05 PM [facility] Station ID: [id number]
--- NOTE | 2025-05-21 18:19 | CONSULTATION NOTE ---
Referring Provider Name of Referring Provider:: Bernardino Bustos Consult Date: 05/21/25 Chief Complaint Chief Complaint Chief Complaint: umbilical pain in hernia History of Present Illness Admitted From Admitted From:: home History Obtained From Records Reviewed: Sravan [facility] Exam Limitations: he's intubated, on precedex, propofol, and fentanyl History of Present Illness HPI Comment/Other: This was a relatively urgent/emergent case. He presented to the emergency department with abrupt onset of umbilical pain at hernia site. Apparently he has a longstanding umbilical hernia and is used to pushing it back in but this time he could not. The pain was getting increasingly worse so he brought himself to the emergency room approximately midnight. From there he is care was turned over to Dr. Minor who then called general surgery. He was afebrile at 36.9. Heart rate 101. Respirations 22. Blood pressure 194/133. He is a superobese uncomfortable white male according to the ER notes. Normal respiration. Normal heart rate. Morbidly obese abdomen with a large midline hernia around the area of the umbilicus with larger protrusion. The hernia sac was soft and palpably full of bowel. Unable to reduce or find the hernia opening. White cell count was 6.2, hemoglobin 15.1. Troponin 18.5. BUN/creatinine normal. CT of the abdomen was done and reviewed by 1030 this morning. He has a ventral periumbilical hernia with a loop of colon suggesting obstruction. General surgery saw the patient. The OR team called in for after- hours case. This is where it became quite urgent. He is superobese, thick neck, and 2 attempts were made at endotracheal intubation. With these attempts, he became hypotensive in the 60s systolic. Difficult to ventilate but not successfully intubated. Another attempt was made in this time through nasotracheal intubation. He was temporarily on Levophed. Taken to the OR and able to come off Levophed, and airway maintained. In the OR he was found to have an incarcerated umbilical hernia with colon on the omentum in the hernia sac causing bowel obstruction. He underwent an umbilical herniorrhaphy, and a mesh placed. He had a 4 x 4 centimeter defect. The hernia sac itself measured 16 cm in height, 17 cm in width and approximately 15 cm in depth. I did also get a history from his . He has been 4 times and he and his just moved to this area a year ago. He describes him as having severe bulimia as a teenager. 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 They discovered this when he had a Lap-Band procedure about 20 years ago. He had difficulty with intubation and they actually had to do some tracheal surgery to repair of the trachea around the time of that Lap- Band. He is from [facility]. They moved here about a [place] ago [place] [facility] was getting very stressful for his mental health and it [place] much [place] He was seeing his mental health provider on a regular basis until very recently. He has to get new insurance and a new primary care provider. He has no history of recreational substance abuse. On review of systems he has the tracheal issue as above. He has chronic dyspnea on exertion and cannot walk very far before he gets short of breath. But no history of cardiac disease nor does he have a history of congestive heart failure. He has no problems with his lungs in the form of asthma or emphysema. He does not cough on a regular basis nor does he have phlegm. His medication for his mental illness leaves him severely constipated. So when he stopped going to the bathroom 3 days ago they thought it was his medications. Did did not realize that his increasing distention, abdominal pain was the bowel obstruction. He took 16 different doses of laxative in the last 2 days. He has occasional urinary incontinence. Increasing frequency of stream. Joint pain is mainly in his knees and he will "yelp" when he gets out of a chair. Legs are huge, large, and they always look swollen to her. He has no history of falls, seizures, suicidal ideation. She thinks his memory is okay. He is completely independent with activities of daily living. Upon transfer from OR to ICU, the patient was pulling on lines, and needed several doses of propofol 100 mg to maintain sedation. We then added Precedex, and fentanyl and he has been sedated since then and I have ordered 2-point restraints of the upper extremity. Meds/Allgy Home Medications Ambulatory Orders Medication Instructions Recorded Confirmed carbamazepine 200 mg tablet 600 mg PO DAILY 05/09/24 1 07/21/24 duloxetine 60 mg capsule,delayed 120 mg PO DAILY 05/0903/16/25 release fluvoxamine 100 mg tablet 100 mg PO HS 05/09/24 quetiapine 200 mg tablet 400 mg PO BID 05/09/2403/16 carbamazepine 200 mg tablet 800 mg PO QPM 03/16/25 (Tegretol) carbamazepine 200 mg 1,000 mg (5 x 200 mg) PO BID #150 03/16/25 05/21/25 tablet,extended release,12 hr tabs duloxetine 30 mg capsule,delayed 60 mg (2 x 30 mg) PO DAILY #60 caps 03/16/25 05/21/25 release fluvoxamine 100 mg tablet 200 mg (2 x 100 mg) PO DAILY #60 03/16/25 tabs quetiapine 300 mg tablet (Seroquel) 600 mg (2 x 300 mg ) PO DAILY #60 03/16/25 tabs Allergies Allergies Allergy/AdvReac Type Severity Reaction Status Date / Time No Known Drug Allergies Allergy Verified 05/21/25 07:22 PFSH Active Problems All Active Problems (Updated 05/21/25 @ 18:58 by Key Laurent MD) Troponin I above reference range (Acute) Tracheomalacia (Acute) Ventilator dependence (Acute) Incarcerated umbilical hernia (Acute) SBO (small bowel obstruction) (Acute) Medical History Medical History (Updated 05/21/25 @ 18:58 by Key Laurent MD) Sleep paralysis Thrashes as he is going to sleep. Will also thrash in the middle of sleep. Depression Bipolar 1 disorder Super obesity lap band ~2004 in [place] Anxiety HLD (hyperlipidemia) HTN (hypertension) Surgical History Surgical History (Updated 05/21/25 @ 18:36 by Key Laurent MD) Hx of laparoscopic gastric banding Family History Family History (Updated 05/21/25 @ 18:38 by Key Laurent MD) Father Cancer Mother CAD (coronary artery disease) Hip fracture due to osteoporosis Brother Diabetes Obesity Ventral hernia Sister Diabetes Ventral hernia Sister Diabetes Ventral hernia Son Ventral hernia Obesity Social History Social History (Updated 05/21/25 @ 18:41 by Key Laurent MD) Smoking Status: Never smoker Second hand tobacco smoke exposure: No Do you dip or chew tobacco?: No Do you vape?: No Patient requests smoking cessation consult: No Initiate information on smoking cessation: No Living arrangement: At home Marital Status: Living Condition: With spouse/s.o. Support Person: Yes Living Situation Details: Lives in his own home. Moved here a year ago from [facility] to live closer to his brother. Has a Durable Power of Asset Availability Leader for Health Care?: No DPOA on file?: No Has Health Care Directive?: No Health Care Directive on file?: No DPOA / Health Care Directive - Additional Notes: to his fourth . Fantasma Tapia. 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4-11.4) fL Neut # (Auto) 10.4 H (1.5-6.6) 10^3/uL Lymph # (Auto) 0.9 L (1.5-3.5) 10^3/uL Phelps # (Auto) 0.7 (0.0-1.0) 10^3/uL Eos # (Auto) 0.0 (0.0-0.7) 10^3/uL Baso # (Auto) 0.0 (0.0-0.1) 10^3/uL Absolute Nucleated RBC 0.00 x10^3/uL Nucleated RBC % 0.0 /100WBC Bld Gas Analysis Time 1647 Sample Site A-LINE ABG pH 7.32 L (7.35-7.45) ABG pCO2 52 H (34-45) mmHg ABG pO2 89 (83-108) mmHg ABG HCO3 27.2 H (22.0-26.0) mmol/L ABG Total CO2 28.8 (21.0-29.0) mmol/L ABG O2 Saturation 97 (95-98) % ABG Base Excess 0.9 (-2.0-3.0) mmol/L Giancarlo Test NOT APPLICABLE Respiration Rate 16 b/min O2 Delivery Device VENTILATOR Vent Mode ASSIST/CONTROL FiO2 70.00 Tidal Volume 540 mL PEEP 5 cmH2O Sodium 133 L (135-145) mmol/L Potassium 4.2 (3.5-4.5) mmol/L Chloride 99 L (101-111) mmol/L Carbon Dioxide 27 (21-32) mmol/L Anion Gap 7.0 (6-13) BUN 11 (6-20) mg/dL Creatinine 1.0 (0.6-1.3) mg/dL Estimated GFR (MDRD) 78 L (>89) Glucose 147 H (74-104) mg/dL Calcium 8.6 (8.5-10.3) mg/dL Total Bilirubin 0.6 (0.2-1.0) mg/dL AST 23 (10-42) IU/L ALT 27 (10-60) IU/L Alkaline Phosphatase 65 (42-121) IU/L Troponin I High Sens 20.4 H* (2.3-19.7) ng/L Total Protein 7.3 (6.4-8.9) g/dL Albumin 4.2 (3.2-5.5) g/dL Globulin 3.1 (2.1-4.2) g/dL Albumin/Globulin Ratio 1.4 (1.0-2.2) Lipase (11-82) U/L 05/21/25 Range/Units 01:25 WBC 6.2 (4.8-10.8) x10^3/uL RBC 5.16 (4.70-6.10) 10^6/uL Hgb 15.1 (14.0-18.0) g/dL Hct 44.2 (42.0-52.0) % MCV 85.7 (80.0-94.0) fL MCH 29.3 (27.0-31.0) pg MCHC 34.2 (32.0-36.0) g/dL RDW 13.2 (12.0-15.0) % Plt Count 190 (130-450) 10^3/uL MPV 10.0 (7.4-11.4) fL Neut # (Auto) 3.9 (1.5-6.6) 10^3/uL Lymph # (Auto) 1.5 (1.5-3.5) 10^3/uL Phelps # (Auto) 0.6 (0.0-1.0) 10^3/uL Eos # (Auto) 0.1 (0.0-0.7) 10^3/uL Baso # (Auto) 0.1 (0.0-0.1) 10^3/uL Absolute Nucleated RBC 0.00 x10^3/uL Nucleated RBC % 0.0 /100WBC Bld Gas Analysis Time Sample Site ABG pH (7.35-7.45) ABG pCO2 (34-45) mmHg ABG pO2 (83-108) mmHg ABG HCO3 (22.0-26.0) mmol/L ABG Total CO2 (21.0-29.0) mmol/L ABG O2 Saturation (95-98) % ABG Base Excess (-2.0-3.0) mmol/L Giancarlo Test Respiration Rate b/min O2 Delivery Device Vent Mode FiO2 Tidal Volume mL PEEP cmH2O Sodium 134 L (135-145) mmol/L Potassium 3.8 (3.5-4.5) mmol/L Chloride 99 L (101-111) mmol/L Carbon Dioxide 29 (21-32) mmol/L Anion Gap 6.0 (6-13) BUN 9 (6-20) mg/dL Creatinine 0.8 (0.6-1.3) mg/dL Estimated GFR (MDRD) 102 (>89) Glucose 109 H (74-104) mg/dL Calcium 9.2 (8.5-10.3) mg/dL Total Bilirubin 0.4 (0.2-1.0) mg/dL AST 26 (10-42) IU/L ALT 29 (10-60) IU/L Alkaline Phosphatase 66 (42-121) IU/L Troponin I High Sens 18.5 (2.3-19.7) ng/L Total Protein 7.1 (6.4-8.9) g/dL Albumin 4.2 (3.2-5.5) g/dL Globulin 2.9 (2.1-4.2) g/dL Albumin/Globulin Ratio 1.4 (1.0-2.2) Lipase 25 (11-82) U/L Diagnostic Imaging Results Diagnostic Imaging Results: positive Final report reviewed EKG Results EKG Interpreted Independently: No Review of Systems Status of ROS: unobtainable due to endotracheal tube Exam Exam Vital Signs: Vital Signs x48h Temp Pulse Resp BP Pulse Ox 05/21/25 16:20 112 H 05/21/25 15:50 105 H 162/99 H 93 05/21/25 15:40 105 H 173/99 H 90 L 05/21/25 15:35 105 H 184/111 H 88 L 05/21/25 15:30 108 H 171/86 H 88 L 05/21/25 15:25 99.3 C H 05/21/25 15:24 100 142/94 H 88 L 05/21/25 15:24 99 142/94 H 86 L 05/21/25 15:24 99 18 142/94 H 87 L 05/21/25 15:24 100 18 142/94 H 87 L 05/21/25 15:24 99 18 85 L 05/21/25 15:23 99.3 C H 97 16 85 L Morbidly obese white male laying on his back with an ENT tube in place. Sewn in. On a ventilator. Drips noted hanging or Precedex, fentanyl, propofol. I have ordered upper extremity restraints and those are in place. Constitutional no apparent distress HENMT normocephalic and head/scalp atraumatic Eyes Pupils pinpoint, no response at this time to light reflex Neck/C-Spine Neck is too thick to assess for JVD. I do not hear bruits Chest inspection of chest normal Respiratory Lungs have coarse upper airway breath sounds, equal in all lung triplett. I only listened anteriorly. Cardiovascular normal heart rate noted and regular rhythm noted Distant cardiac tones and I do not hear murmur Gastrointestinal A hugely protuberant obese pannus. Vertical striae. Vertical incision site with bloody bandage. Skin discoloration from Betadine. No redness or heat at the incision or rest of abdomen. Early slightly pink and Chandni in intertriginous folds. Genitourinary Kumar in place. Testicles edematous. Extremities Huge limbs. Calves and feet look puffy and doughy but they are nonpitting. Onychomycosis. Calluses of both feet on the soles of the feet Neurology Pupils pinpoint. Vent dependent due to my sedation. Prior to restraints, the patient was moving all of his extremities with vigorous force.Could not follow commands. Skin skin color normal, no rash and no lesions Conclusion/Plan Problem List (1) Ventilator dependence: Plan: The patient is intubated to protect his airway and not because of any intrinsic lung disease by history or exam. He has peak pressures are 27 so I do not think he has pulmonary hypertension or interstitial lung disease. My goal is to keep him sedated and intubated overnight to protect his wound and to protect his airway. Tomorrow morning we will wean and start extubation parameters. Initial vent settings were AC with a tidal volume of 540, rate of 16, PEEP of 5, and 60% FiO2. His blood gases showed a pH 7.32, pCO2 52, pO2 89. I adjusted the vent settings to a tidal volume of 500, rate of 18. And I am awaiting repeat blood gases. I am currently adjusting ventilatory settings to get his pCO2 below 45. I am awaiting his repeat blood gases and will adjust appropriately. (2) Incarcerated umbilical hernia: Plan: Causing small bowel obstruction. He is postop day 0. Surgery to follow. They are anticipating that he should have a quick turnaround time and may be able to be discharged by tomorrow or the next day depending on his airway status and his response to pain.Once he is awake medicine such as Zofran for nausea, ketorolac for pain, Dilaudid for pain, and oxycodone p.o. for pain will be used. (3) SBO (small bowel obstruction): Plan: Due to incarcerated umbilical hernia. Postop day 0. See above. (4) Tracheomalacia: Plan: I explained to his that he really needs to note that is a problem. This would have been helpful for unfortunate anesthesiologist prior to intubation. Currently has nasotracheal intubation. Hopefully to be extubated tomorrow. (5) Super obesity: Plan: This may delay his progression after surgery. Hopefully we can extubate him, he will be assisted to a sitting position and standing position. (6) Bipolar 1 disorder: Plan: If bowel function returns to normal by tomorrow, he is at home medications of carbamazepine, duloxetine, fluvoxamine and Seroquel need to be resumed. (7) Troponin I above reference range: Plan: His states that he does not have any cardiac history. No history of CHF or angina. Initial troponin was 18.5 in the ER at 1:30 in the morning. Repeat at 4:00 this afternoon was 20.4. I will repeat again before midnight and another 1 tomorrow morning.I am not seeing an EKG scanned into the EMR and I will order that for completeness sake. Lab Results Lab results reviewed: Yes 05/21/25 16:31 05/21/25 16:01 Diagnostic Imaging Results Diagnostic Imaging Results: positive Final report reviewed EKG Results EKG Interpreted Independently: No
[2025-05-21 18:36] LABS: ABG BASE EXCESS 1.1 mmol/L (-2.0-3.0); ABG HCO3 26.9 mmol/L (22.0-26.0); ABG OXYGEN SATURATION 98 % (95-98); ABG PCO2 48 mmHg (34-45); ABG PH 7.36 (7.35-7.45); ABG PO2 86 mmHg (83-108); ABG TCO2 28.3 mmol/L (21.0-29.0)
[2025-05-21 18:38] LABS: ABG MODE OF VENTILATION ASSIST/CONTROL
[2025-05-21 18:39] LABS: ABG FRACTION OF INSPIRED O2 60.00; ABG RESPIRATORY RATE 18 b/min
[2025-05-21 20:47] LABS: ABG BASE EXCESS 1.9 mmol/L (-2.0-3.0); ABG HCO3 27.3 mmol/L (22.0-26.0); ABG MODE OF VENTILATION ASSIST/CONTROL; ABG OXYGEN SATURATION 99 % (95-98); ABG PCO2 46 mmHg (34-45); ABG PH 7.38 (7.35-7.45); ABG PO2 95 mmHg (83-108); ABG RESPIRATORY RATE 20 b/min; ABG TCO2 28.7 mmol/L (21.0-29.0)
[2025-05-21 20:48] LABS: ABG FRACTION OF INSPIRED O2 60.00
[2025-05-22 04:50] LABS: VBG PH 7.398 (7.31-7.41)
[2025-05-22 05:05] LABS: PHOSPHORUS 5.4 mg/dL (2.5-5.0)
[2025-05-22 05:46] LABS: ABG OXYGEN SATURATION 96 % (95-98); ABG PCO2 44 mmHg (34-45); ABG PH 7.39 (7.35-7.45); ABG PO2 77 mmHg (83-108)
[2025-05-22 05:47] LABS: ABG BASE EXCESS 1.3 mmol/L (-2.0-3.0); ABG FRACTION OF INSPIRED O2 70.00; ABG HCO3 26.5 mmol/L (22.0-26.0); ABG MODE OF VENTILATION ASSIST/CONTROL; ABG RESPIRATORY RATE 20 b/min; ABG TCO2 27.8 mmol/L (21.0-29.0)
[2025-05-22] MEDS: SODIUM CHLORIDE FLUSH 0.9% 10 ML SYRINGE IVP PRN (07:37)
[2025-05-22 07:39] LABS: HCT - HEMATOCRIT 37.4 % (42.0-52.0); HGB - HEMOGLOBIN 12.6 g/dL (14.0-18.0); MEAN PLATELET VOLUME 10.4 fL (7.4-11.4); NRBC ABSOLUTE COUNT (AUTO) 0.00 x10^3/uL; NUCLEATED RED BLOOD CELLS AUTO 0.0 /100WBC; PLT - PLATELET COUNT 171 10^3/uL (130-450); RED CELL DISTRIBUTION WIDTH 13.7 % (12.0-15.0)
[2025-05-22 08:01] LABS: ALT ALANINE AMINOTRANSFERASE 22.0 IU/L (10-60); AST ASPARTATE AMINOTRANSFERASE 38.0 IU/L (10-42); BUN - BLOOD UREA NITROGEN 20.0 mg/dL (6-20); CARBON DIOXIDE - CO2 25.0 mmol/L (21-32); CREATININE 1.7 mg/dL (0.6-1.3); GFR - MDRD 43.0 (>89)
[2025-05-22] MEDS: ENOXAPARIN 40 MG/0.4 ML SYRINGE SUBQ SCH ×2 (08:25→21:18)
--- NOTE | 2025-05-22 09:52 | PROVIDER PROGRESS NOTE ---
<Statement entered by Jacoby Guerrero, DO - 05/22/25 17:12> I was present with the [employer] student on the hospitalist service. I personally verified the history of present illness and performed the physical examination and medical decision making. I have verified the students documentation for this encounter and agree with the plan of care below. In addition this is a 50-year-old gentleman who came in with an incarcerated anterior abdominal hernia. He was taken to surgery on 05/21 with complete repair of the hernia and no ongoing sequela I. Unfortunately during his intubation which was prolonged due to a history of tracheomalacia, I he had respiratory decompensation. He is remained intubated in the ICU overnight. He continues to be on a high level of oxygen this morning. His chest x-ray is indicative of fluid overload. Additionally he fevered today and has been having mucinous sputum. He has been started on antibiotics for aspiration pneumonia as well as diuresing to pull off additional fluid. He is responding well to both of these treatments. No further fevers. He was treated with fluids overnight, these were discontinued as were diuresing him. Additionally this morning he has an BRANDON, unclear etiology overall but his urine studies that were gathered this morning are indicative of prerenal etiology. - Discussed with surgery, medicine will assume primary - Diuresis x 2 this afternoon, effective - Wean oxygen as tolerated, once FiO2 less than 50%, can consider extubation - Started on ceftriaxone and azithromycin for aspiration pneumonia - Monitor CBC a.m. - Monitor BMP this afternoon in a.m. - Monitor troponin this afternoon - Trend troponin to peak - Discussed with his at bedside, she is understanding of this plan - If his renal function decompensates to where he needs dialysis, would need to transfer - If his pulmonary function is not improving despite above treatments, may need to transfer for pulmonary specialty support I spent a total of 61 minutes in the care of this patient today. This time was spent reviewing labs, vital signs, imaging, interviewing and examining the patient, and discussing plan of care with them and their other care providers. 38 minutes were spent in critical care time. Subjective Prog Note Date Prog Note Date: 05/22/25 Prog Note Time: 09:36 Subjective Pt reports feeling: No change (Pt intubated and unable to provide a subjective history) Subjective: Pt remains intubated and is unable to provide a subjective history at this time. Current Medications Current Medications Current Medications: Current Medications Generic Name Dose Route Start Last Admin Trade Name Freq PRN Reason Stop Dose Admin Enoxaparin Sodium 40 mg 05/22/25 09:00 05/22/25 08:25 Enoxaparin 40 Mg/0.4 Ml Syringe SUBQ 40 mg DAILY PRIYANKA Administration Lactated Ringer's 1,000 mls @ 0 mls/hr 05/21/25 10:14 Lr IV .Q0M PRN preop TKO Propofol 1,000 mg in 100 mls @ 11.294 mls/hr 05/21/25 16:00 05/22/25 09:27 Diprivan IV 15 mcg/kg/min .[id number] PRIYANKA 16.94 mls/hr Protocol Titration 10 MCG/KG/MIN Fentanyl 2,500 mcg in 250 mls @ 18.824 mls/hr 05/21/25 17:00 05/22/25 09:11 Fentanyl IV 0.8 mcg/kg/hr .[id number] PRIYANKA 15.06 mls/hr Protocol Titration 1 MCG/KG/HR Potassium Chloride/Sodium Chloride 1,000 mls @ 125 mls/hr 05/21/25 16:13 05/22/25 01:28 Normal Saline 0.9% W/20 Meq Kcl IV 125 mls/hr .Q8H PRIYANKA Administration Dexmedetomidine/Sodium Chloride 100 mls @ 9.412 mls/hr 05/21/25 16:13 05/22/25 00:24 Precedex Premix IV 0.2 mcg/kg/hr .[id number] PRIYANKA 9.41 mls/hr Protocol Administration 0.2 MCG/KG/HR Pantoprazole Sodium 40 mg 05/21/25 16:13 05/22/25 06:03 Pantoprazole 40 Mg Vial IVP 40 mg QDAC PRIYANKA Administration Sodium Chloride 10 ml 05/21/25 17:00 05/22/25 07:38 Sodium Chloride Flush 0.9% 10 Ml Syringe IVP 10 ml 0100,0900,1700 PRIYANKA Administration Sodium Chloride 10 ml 05/21/25 16:13 05/22/25 07:37 Sodium Chloride Flush 0.9% 10 Ml Syringe IVP 10 ml PRN PRN Administration NEEDED PER PROVIDER ORDERS Objective Vital Signs/Intake & Output Reviewed Vital Signs: Yes Vital Signs: Vital Signs x48h Temp Pulse Pulse Resp BP BP Pulse Ox 05/22/25 09:00 72 20 92 05/22/25 08:00 37.8 C 73 20 106/59 L 108/65 92 05/22/25 07:21 73 05/22/25 07:00 73 20 100/57 L 102/64 93 05/22/25 06:00 73 20 100/59 L 93 05/22/25 05:54 73 05/22/25 05:00 73 20 97/59 L 93 05/22/25 04:26 75 05/22/25 04:00 74 20 99/65 92 05/22/25 03:19 75 05/22/25 03:00 75 20 100/64 94 05/22/25 02:00 75 20 105/54 L 108/68 94 Intake & Output: Intake & Output 05/19/25 05/20/25 05/21/25 05/22/25 23:59 23:59 23:59 23:59 Intake Total 3091 / 3091 1682 / 1682 Output Total 670 / 670 188 / 188 Balance 2421 / 2421 1494 / 1494 Weight (kg) 188.241 kg Objective General Appearance: positive Other (Intubated; appears to be tolerating current ventilator settings with adequate compliance and current dosage regimen of Propofol) ENT: positive Other (NTI in right naris, secured with sutures. No niko bleeding or edema at naris. ) Respiratory: positive No respiratory distress (Pt intubated, compliance to current ventilator settings adequate. ) and Breath sounds nml (LCATB) Cardiovascular: positive Regular rate & rhythm Abdomen: positive No distention Skin: positive Color nml, Warm and Dry Neurologic/Psychiatric: positive Other (Pt sedated due to NTI. ) Lab Results 05/22/25 07:30 05/22/25 17:15 Other Labs: Lab Results x24hrs 05/22/25 05/22/25 05/22/25 Range/Units 07:30 05:35 04:42 WBC 9.0 (4.8-10.8) x10^3/uL RBC 4.17 L (4.70-6.10) 10^6/uL Hgb 12.6 L (14.0-18.0) g/dL Hct 37.4 L (42.0-52.0) % MCV 89.7 (80.0-94.0) fL MCH 30.2 (27.0-31.0) pg MCHC 33.7 (32.0-36.0) g/dL RDW 13.7 (12.0-15.0) % Plt Count 171 (130-450) 10^3/uL MPV 10.4 (7.4-11.4) fL Neut # (Auto) 6.8 H (1.5-6.6) 10^3/uL Lymph # (Auto) 1.1 L (1.5-3.5) 10^3/uL Waller # (Auto) 1.1 H (0.0-1.0) 10^3/uL Eos # (Auto) 0.0 (0.0-0.7) 10^3/uL Baso # (Auto) 0.0 (0.0-0.1) 10^3/uL Absolute Nucleated RBC 0.00 x10^3/uL Nucleated RBC % 0.0 /100WBC Bld Gas Analysis Time 05:43 Sample Site A-LINE ABG pH 7.39 (7.35-7.45) ABG pCO2 44 (34-45) mmHg ABG pO2 77 L (83-108) mmHg ABG HCO3 26.5 H (22.0-26.0) mmol/L ABG Total CO2 27.8 (21.0-29.0) mmol/L ABG O2 Saturation 96 (95-98) % ABG Base Excess 1.3 (-2.0-3.0) mmol/L Giancarlo Test NOT APPLICABLE VBG pH 7.398 (7.31-7.41) Ionized Calcium 1.09 (1.09-1.30) mmol/L Respiration Rate 20 b/min O2 Delivery Device VENTILATOR Vent Mode ASSIST/CONTROL FiO2 70.00 Tidal Volume 500 mL PEEP cmH2O Sodium 133 L (135-145) mmol/L Potassium 4.5 4.5 (3.5-4.5) mmol/L Chloride 101 (101-111) mmol/L Carbon Dioxide 25 (21-32) mmol/L Anion Gap 7.0 (6-13) BUN 20 (6-20) mg/dL Creatinine 1.7 H (0.6-1.3) mg/dL Estimated GFR (MDRD) 43 L (>89) Glucose 114 H (74-104) mg/dL Calcium 7.9 L (8.5-10.3) mg/dL Phosphorus 5.4 H (2.5-5.0) mg/dL Magnesium 2.1 (1.7-2.3) mg/dL Total Bilirubin 0.8 (0.2-1.0) mg/dL AST 38 (10-42) IU/L ALT 22 (10-60) IU/L Alkaline Phosphatase 47 (42-121) IU/L Troponin I High Sens 52.9 H* (2.3-19.7) ng/L Total Protein 6.0 L (6.4-8.9) g/dL Albumin 3.4 (3.2-5.5) g/dL Globulin 2.6 (2.1-4.2) g/dL Albumin/Globulin Ratio 1.3 (1.0-2.2) Nasal Screen MRSA (PCR) (NEGATIVE) 05/21/25 05/21/25 05/21/25 Range/Units 20:40 19:13 18:25 WBC (4.8-10.8) x10^3/uL RBC (4.70-6.10) 10^6/uL Hgb (14.0-18.0) g/dL Hct (42.0-52.0) % MCV (80.0-94.0) fL MCH (27.0-31.0) pg MCHC (32.0-36.0) g/dL RDW (12.0-15.0) % Plt Count (130-450) 10^3/uL MPV (7.4-11.4) fL Neut # (Auto) (1.5-6.6) 10^3/uL Lymph # (Auto) (1.5-3.5) 10^3/uL Waller # (Auto) (0.0-1.0) 10^3/uL Eos # (Auto) (0.0-0.7) 10^3/uL Baso # (Auto) (0.0-0.1) 10^3/uL Absolute Nucleated RBC x10^3/uL Nucleated RBC % /100WBC Bld Gas Analysis Time 2046 18:35 Sample Site A-LINE A-LINE ABG pH 7.38 7.36 (7.35-7.45) ABG pCO2 46 H 48 H (34-45) mmHg ABG pO2 95 86 (83-108) mmHg ABG HCO3 27.3 H 26.9 H (22.0-26.0) mmol/L ABG Total CO2 28.7 28.3 (21.0-29.0) mmol/L ABG O2 Saturation 99 H 98 (95-98) % ABG Base Excess 1.9 1.1 (-2.0-3.0) mmol/L Giancarlo Test NOT APPLICABLE NOT APPLICABLE VBG pH (7.31-7.41) Ionized Calcium (1.09-1.30) mmol/L Respiration Rate 20 18 b/min O2 Delivery Device VENTILATOR VENTILATOR Vent Mode ASSIST/CONTROL ASSIST/CONTROL FiO2 60.00 60.00 Tidal Volume 500 500 mL PEEP 5 5 cmH2O Sodium (135-145) mmol/L Potassium (3.5-4.5) mmol/L Chloride (101-111) mmol/L Carbon Dioxide (21-32) mmol/L Anion Gap (6-13) BUN (6-20) mg/dL Creatinine (0.6-1.3) mg/dL Estimated GFR (MDRD) (>89) Glucose (74-104) mg/dL Calcium (8.5-10.3) mg/dL Phosphorus (2.5-5.0) mg/dL Magnesium (1.7-2.3) mg/dL Total Bilirubin (0.2-1.0) mg/dL AST (10-42) IU/L ALT (10-60) IU/L Alkaline Phosphatase (42-121) IU/L Troponin I High Sens 30.7 H* (2.3-19.7) ng/L Total Protein (6.4-8.9) g/dL Albumin (3.2-5.5) g/dL Globulin (2.1-4.2) g/dL Albumin/Globulin Ratio (1.0-2.2) Nasal Screen MRSA (PCR) (NEGATIVE) 05/21/25 05/21/25 05/21/25 Range/Units 16:37 16:31 16:30 WBC 12.1 H (4.8-10.8) x10^3/uL RBC 5.12 (4.70-6.10) 10^6/uL Hgb 14.7 (14.0-18.0) g/dL Hct 45.2 (42.0-52.0) % MCV 88.3 (80.0-94.0) fL MCH 28.7 (27.0-31.0) pg MCHC 32.5 (32.0-36.0) g/dL RDW 13.3 (12.0-15.0) % Plt Count 220 (130-450) 10^3/uL MPV 10.3 (7.4-11.4) fL Neut # (Auto) 10.4 H (1.5-6.6) 10^3/uL Lymph # (Auto) 0.9 L (1.5-3.5) 10^3/uL Waller # (Auto) 0.7 (0.0-1.0) 10^3/uL Eos # (Auto) 0.0 (0.0-0.7) 10^3/uL Baso # (Auto) 0.0 (0.0-0.1) 10^3/uL Absolute Nucleated RBC 0.00 x10^3/uL Nucleated RBC % 0.0 /100WBC Bld Gas Analysis Time 1647 Sample Site A-LINE ABG pH 7.32 L (7.35-7.45) ABG pCO2 52 H (34-45) mmHg ABG pO2 89 (83-108) mmHg ABG HCO3 27.2 H (22.0-26.0) mmol/L ABG Total CO2 28.8 (21.0-29.0) mmol/L ABG O2 Saturation 97 (95-98) % ABG Base Excess 0.9 (-2.0-3.0) mmol/L Giancarlo Test NOT APPLICABLE VBG pH (7.31-7.41) Ionized Calcium (1.09-1.30) mmol/L Respiration Rate 16 b/min O2 Delivery Device VENTILATOR Vent Mode ASSIST/CONTROL FiO2 70.00 Tidal Volume 540 mL PEEP 5 cmH2O Sodium (135-145) mmol/L Potassium (3.5-4.5) mmol/L Chloride (101-111) mmol/L Carbon Dioxide (21-32) mmol/L Anion Gap (6-13) BUN (6-20) mg/dL Creatinine (0.6-1.3) mg/dL Estimated GFR (MDRD) (>89) Glucose (74-104) mg/dL Calcium (8.5-10.3) mg/dL Phosphorus (2.5-5.0) mg/dL Magnesium (1.7-2.3) mg/dL Total Bilirubin (0.2-1.0) mg/dL AST (10-42) IU/L ALT (10-60) IU/L Alkaline Phosphatase (42-121) IU/L Troponin I High Sens (2.3-19.7) ng/L Total Protein (6.4-8.9) g/dL Albumin (3.2-5.5) g/dL Globulin (2.1-4.2) g/dL Albumin/Globulin Ratio (1.0-2.2) Nasal Screen MRSA (PCR) NEGATIVE (NEGATIVE) 05/21/25 Range/Units 16:01 WBC (4.8-10.8) x10^3/uL RBC (4.70-6.10) 10^6/uL Hgb (14.0-18.0) g/dL Hct (42.0-52.0) % MCV (80.0-94.0) fL MCH (27.0-31.0) pg MCHC (32.0-36.0) g/dL RDW (12.0-15.0) % Plt Count (130-450) 10^3/uL MPV (7.4-11.4) fL Neut # (Auto) (1.5-6.6) 10^3/uL Lymph # (Auto) (1.5-3.5) 10^3/uL Waller # (Auto) (0.0-1.0) 10^3/uL Eos # (Auto) (0.0-0.7) 10^3/uL Baso # (Auto) (0.0-0.1) 10^3/uL Absolute Nucleated RBC x10^3/uL Nucleated RBC % /100WBC Bld Gas Analysis Time Sample Site ABG pH (7.35-7.45) ABG pCO2 (34-45) mmHg ABG pO2 (83-108) mmHg ABG HCO3 (22.0-26.0) mmol/L ABG Total CO2 (21.0-29.0) mmol/L ABG O2 Saturation (95-98) % ABG Base Excess (-2.0-3.0) mmol/L Giancarlo Test VBG pH (7.31-7.41) Ionized Calcium (1.09-1.30) mmol/L Respiration Rate b/min O2 Delivery Device Vent Mode FiO2 Tidal Volume mL PEEP cmH2O Sodium 133 L (135-145) mmol/L Potassium 4.2 (3.5-4.5) mmol/L Chloride 99 L (101-111) mmol/L Carbon Dioxide 27 (21-32) mmol/L Anion Gap 7.0 (6-13) BUN 11 (6-20) mg/dL Creatinine 1.0 (0.6-1.3) mg/dL Estimated GFR (MDRD) 78 L (>89) Glucose 147 H (74-104) mg/dL Calcium 8.6 (8.5-10.3) mg/dL Phosphorus (2.5-5.0) mg/dL Magnesium (1.7-2.3) mg/dL Total Bilirubin 0.6 (0.2-1.0) mg/dL AST 23 (10-42) IU/L ALT 27 (10-60) IU/L Alkaline Phosphatase 65 (42-121) IU/L Troponin I High Sens 20.4 H* (2.3-19.7) ng/L Total Protein 7.3 (6.4-8.9) g/dL Albumin 4.2 (3.2-5.5) g/dL Globulin 3.1 (2.1-4.2) g/dL Albumin/Globulin Ratio 1.4 (1.0-2.2) Nasal Screen MRSA (PCR) (NEGATIVE) Diagnostic Imaging Diagnostic Imaging Results: positive Prelim report reviewed and Read independently Diagnostic Imaging Comments: CXR from yesterday suggests global pulmonary edema on AP supine view and decreased total lung volume, with high diaphragm. Assessment/Plan Problem List (1) Acute hypoxemic respiratory failure: Impression: Condition: Pt is still intubated following intraoperative respiratory failure during a mesh repair for strangulated non-gangrenous umbilical hernia. 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 Placement confirmed via repeat CXR, remaining above addison but providing adequate ventilation to both lungs, confirmed with auscultation. Pt aspiration event(s) likely during operative procedure, and due to new fever onset, IV azithromycin started for PNA coverage. Continued monitoring of airway and respiratory status, goal to extubate once FiO2 of 50% tolerated, with stepdown to O2 mask and wean to room air for s/p rehab and discharge. Assistance: Ventilation, airway management, postoperative care, IV antibiotic therapy Risk: Respiratory Failure, Respiratory Arrest, Aspiration PNA Expected LOS ~2-4 midnights Monitor: Pt seems to be tolerating current ventilator settings with adequate compliance and good oxygenation status with good lung sounds bilaterally. Pt due to be extubated today, will update respiratory status after this. Will continue to monitor ventilatory settings, effort, compliance, and oxygenation status. Evaluate: continue to assess ABG values for ventilator adjustment, f/u CXR prior to extubation. Assess/order: Continue to obtain ABG values and closely assess oxygenation/effort/rate for pulmonary function post extubation. Revisit any need for reintubation. Treat: Continue to assess for any need for respiratory medical management (mucolytics, nebulized medications, steroidal medications, etc) (2) BRANDON (acute kidney injury): Impression: Condition: BRANDON secondary to hypovolemic/hypoperfusion state during surgical procedure. Urinary protein excretion estimation is 410mg/g, 0.4g/day. FeNa is 0.1%. Monitor: Continue to monitor urine protein loss, FeNa, BUN/Cr ratio, and GFR. Evaluate: Initial urine output tea-colored/very dark urine, has now cleared significantly with diuretics and fluid. Total proteinuria sub-nephrotic range at this time. No casts apparent in urine study at this time. Assess/add: F/u UA tomorrow to monitor for worsening proteinuria or evidence of ATN. Treat: Continue to diurese with fluids and Lasix, discontinue any nephrotoxic medications, adjust interventions PRN. (3) Incarcerated umbilical hernia: Impression: Monitor: S/p surgical hernia reduction and mesh placement. Surgical site is dressed, but margins appear to be in correct position, with no niko bleeding observed. Serosanguinous drainage in dressing. Continue to monitor for bowel movement and management of bowel protocols. Evaluate: Continue to monitor for gut motility, bowel movement, surgical site dehiscence, fluid status, PO intake. Assess/order:Can order additional lab values to monitor gut sequelae if clinical picture changes, and monitor INR for postprocedural anticoagulation. (4) Troponin I above reference range: Impression: Monitor: Monitor levels ongoing, no acute increase to the degree indicative of ACS; per DO, more suggestive of demand ischemia. (5) SBO (small bowel obstruction): Impression: Monitor: S/p surgical hernia reduction and mesh placement. Surgical site is dressed, but margins appear to be in correct position, with no niko bleeding observed. Serosanguinous drainage in dressing. Continue to monitor for bowel movement and management of bowel protocols. Evaluate: Continue to monitor for gut motility, bowel movement, surgical site dehiscence, fluid status, PO intake. Assess/order:Can order additional lab values to monitor gut sequelae if clinical picture changes. (6) Tracheomalacia: Impression: Monitor: Monitor for any possibility of airway obstruction during continuation of care. Evaluate: Monitor oxygenation status, respiratory effort, and LOC/distress during extubation process and beyond. Assess/add: Can continue to assess ABG values trended over time, in addition to ongoing capnography and respiratory surveillance. Treat: Treatment based on any ongoing changes.
--- NOTE | 2025-05-22 10:14 | PHARMACY PROGRESS NOTE ---
Best Possible Medication History Admit Date and Time: Home Medications Medication Instructions Recorded Confirmed Type carbamazepine 200 mg tablet See Rx Instructions .Route .COMPLEX 05/09/24 05/22/25 History duloxetine 30 mg capsule,delayed 60 mg (2 x 30 mg) PO DAILY #60 caps 03/16/25 05/22/25 Rx release fluvoxamine 100 mg tablet 200 mg (2 x 100 mg) PO DAILY #60 03/16/25 05/22/25 Rx tabs hydroxyzine HCl 25 mg tablet 25 mg PO DAILY 05/22/25 1 07/22/24 History quetiapine 300 mg tablet (Seroquel) 600 mg PO HS 05/2205/22/25 History Processed by: Pharmacy (Medication reconciliation completed by Batch Tank ControllerAylin) Medications reviewed in ED?: No Medication History completed: Yes Patient Interview: Pt unable to participate Secondary Source(s): Spouse/Significant other, Pharmacy records and Insurance records [facility] Statement: As the person ultimately responsible for medication therapy, providers are able to order a medication from an existing home medication list in [facility] via the "Reconcile Routine" prior to Confirmation of that medication by ground crewman mission support. Such practice is discouraged except when the physician, in their clinical judgment, deems that a medical need exists for a medication without regard to previous use.
[2025-05-22] MEDS: cefTRIAXone 2 GM in SODIUM CHLORIDE 0.9% MINIBAG 100 ML IV SCH (10:31)
[2025-05-22] MEDS: AZITHROMYCIN INJ 500 MG in SODIUM CHLORIDE 0.9% 250 ML IV SCH (10:33)
--- NOTE | 2025-05-22 12:47 | ECHO Report ---
Version: 1 Study ID: [id number] Adult Echocardiogram Report Name: YOUSIF ST Study Date: 05/22/2025, 8: 11 AM BP: 108 / 65 mmHg Patient Location: ICU^2302^01 HR: 72 bpm : 1975 (MM/DD/YYYY) Gender: Male Height: 70 in Age: 50 Years Weight: 415 lb BSA: 2.8 m² Reason For Study: Evaluate for possible RIGHT sided heart failure. History: No previous study. Interpretation Summary Global left ventricular systolic function is normal. The visual left ventricular ejection fraction is estimated at 60 to 65%. There is moderate asymmetric septal hypertrophy. The right ventricular systolic function is normal. No concerning cardiac valve disease is noted. Left Ventricle: The left ventricle is normal in size. There is moderate asymmetric septal hypertrophy. The visual left ventricular ejection fraction is estimated at 60 to 65%. Global left ventricular systolic function is normal. Assessment of left ventricular filling pressure is indeterminate. Right Ventricle: The right ventricle is borderline dilated. TAPSE is consistent with normal right ventricular function. The tricuspid annular plane systolic excursion (TAPSE) measurement is 1.9 cm. The right ventricular systolic function is normal. Aortic Valve: The aortic valve is mildly calcified. The aortic valve is trileaflet. No hemodynamically significant valvular aortic stenosis. No aortic regurgitation is present. Mitral Valve: The mitral valve is visually normal in structure and function. No evidence of mitral stenosis is seen. There is trace mitral regurgitation. Tricuspid Valve: The tricuspid valve is normal in structure and function. There is no tricuspid stenosis. Trace tricuspid regurgitation present. Pulmonic Valve: The pulmonic valve is normal in structure and function. There is no pulmonic valvular stenosis. Trace pulmonic valvular regurgitation is present. Left Atrium: The left atrial size is normal. Right Atrium: Right atrial size is normal. The inferior vena cava is not well visualized. The central venous pressure cannot be estimated on this study. Atrial Septum: The interatrial septum appears normal, without evidence of shunt by 2D imaging and color Doppler. Aorta: The ascending aorta is normal in size. Aortic Arch not imaged. The sinuses of Valsalva are normal in size. Pulmonary Artery: The pulmonary artery is normal size. Unable to evaluate RA pressure from IVC dynamics; however the pulmonary artery systolic pressure is likely 30 mmHg plus central venous pressure. Pericardium/Pleural Space: There is no pericardial effusion. Left Ventricle IVSd: 1.50 cm LVIDd: 5.3 cm LVPWd: 1.31 cm LVIDs: 4.0 cm ESV(sp4-el): 54.2 ml Right Ventricle TAPSE: 1.90 cm RV S Jose: 16.8 cm/sec Atria LA dimension: 4.9 cm LAV(MOD-sp4): 55.2 ml LAV(MOD-sp2): 53.2 ml Diastolic Function MV dec time: 0.37 sec MV E max jose: 72.1 cm/sec MV A max jose: 84.9 cm/sec Aortic Valve LVOT diam: 2.46 cm LV V1 mean P.3 mmHg LV V1 mean: 86.3 cm/sec LV V1 VTI: 21.5 cm Ao V2 VTI: 26.4 cm Ao mean P.6 mmHg Ao V2 mean: 112.7 cm/sec LV V1 max: 114.9 cm/sec LV V1 max P.3 mmHg Ao max P.1 mmHg Ao V2 max: 150.6 cm/sec Mitral Valve MV max P.6 mmHg MV V2 max: 94.4 cm/sec MV mean P.61 mmHg MV V2 mean: 58.7 cm/sec MV V2 VTI: 28.5 cm Tricuspid Valve TR max P.9 mmHg TR max jose: 273.5 cm/sec TV max P.9 mmHg Aorta Ao root diam: 3.5 cm MMode/2D Measurements & Calculations Ao root diam: 3.5 cm BMI: 59.5 kilograms/m² BSA([facility]): 3.2 m² ESV(sp4-el): 54.2 ml IVSd: 1.50 cm LA A4C-A/L: 17.6 cm² LA dimension: 4.9 cm LA ESV-A/L: 51.1 ml LA Vol Index: 36.0 ml/m² LAV(MOD-sp2): 53.2 ml LAV(MOD-sp4): 55.2 ml LVIDd: 5.3 cm LVIDs: 4.0 cm LVOT diam: 2.46 cm LVPWd: 1.31 cm RA A4Cs: 15.2 cm² TAPSE: 1.90 cm Doppler Measurements & Calculations Ao max P.1 mmHg Ao mean P.6 mmHg Ao V2 max: 150.6 cm/sec Ao V2 mean: 112.7 cm/sec Ao V2 VTI: 26.4 cm Lat E/e': 8.7 LV V1 max: 114.9 cm/sec LV V1 max P.3 mmHg LV V1 mean: 86.3 cm/sec LV V1 mean P.3 mmHg LV V1 VTI: 21.5 cm Med E/e': 10.2 MV A max jose: 84.9 cm/sec MV dec time: 0.37 sec MV DVI-pr: 0.85 MV E max jose: 72.1 cm/sec MV max P.6 mmHg MV mean P.61 mmHg MV V2 max: 94.4 cm/sec MV V2 mean: 58.7 cm/sec MV V2 VTI: 28.5 cm PA max P.2 mmHg PA V2 max: 134.5 cm/sec RV S Jose: 16.8 cm/sec TR max P.9 mmHg TR max jose: 273.5 cm/sec TV max P.9 mmHg Other Measurements & Calculations Ao root area: 9.8 cm² RAFIA(I,D): 3.9 cm² RAFIA(V,D): 3.6 cm² EDV(Teich): 134.4 ml EF(sp-el): 50.0 % EF(Teich): 48.4 % ESV(Teich): 69.3 ml FS: 24.6 % LVOT area: 4.8 cm² MV E/A: 0.85 MVA(VTI): 3.6 cm² SV(LVOT): 102.6 ml MD Ashly Sandhu 05/22/2025, 12: 47 PM Ordering Physician: Bernardino Bustos Referring Physician: Bernardino Bustos Performed By: [facility]
[2025-05-22 13:05] LABS: OCCULT BLOOD,URINE MODERATE (NEGATIVE)
[2025-05-22 13:06] LABS: GLUCOSE, URINE (UA) NEGATIVE (NEGATIVE); KETONES,URINE (UA) NEGATIVE (NEGATIVE); SQUAMOUS EPITHELIAL CELL,UR RARE Squamous (<= Few)
[2025-05-22 13:10] LABS: TOTAL PROTEIN,URINE RANDOM 86.0 mg/dL
[2025-05-22] MEDS: FUROSEMIDE 40 MG/4 ML VIAL IVP ONE (13:17)
--- NOTE | 2025-05-22 17:10 | XRAY Report ---
PROCEDURE: XR Chest 1V INDICATIONS: hypoxia;intubated TECHNIQUE: One view of the chest was acquired. COMPARISON: 05/21/2025 FINDINGS: Surgical changes and devices: ET tube tip is approximately 5.7 cm above the addison. NG tube tip is below the left hemidiaphragm and is below the lower edge of the study. Right internal jugular central venous catheter tip is in SVC.. Lungs and pleura: There is pulmonary vascular congestion. Mild pulmonary edema and suggestion of small left pleural effusion is seen with blunting of left costophrenic angle. Underlying interstitial infiltrates cannot be excluded. No pneumothorax. Mediastinum: Mediastinal contours appear normal. Heart size is enlarged. Bones and chest wall: No suspicious bony lesions. Overlying soft tissues appear unremarkable. IMPRESSION: Support tubes and lines are in appropriate position. Cardiomegaly, congestion and small left pleural effusion. Underlying interstitial infiltrates can not be excluded. No pneumothorax. Reviewed by: Nate Pastor MD on 05/22/2025 5:07 PM PST Approved by: Nate Pastor MD on 05/22/2025 5:07 PM PST Station ID: [id number]
[2025-05-22 17:42] LABS: BUN - BLOOD UREA NITROGEN 18.0 mg/dL (6-20); CARBON DIOXIDE - CO2 27.0 mmol/L (21-32); CREATININE 1.2 mg/dL (0.6-1.3); GFR - MDRD 64.0 (>89)
[2025-05-22 17:47] LABS: TROPONIN I HIGH SENSITIVITY 64.5 ng/L (2.3-19.7)
--- NOTE | 2025-05-22 19:47 | XRAY Report ---
PROCEDURE: XR Chest 1V INDICATIONS: NTT verification TECHNIQUE: One view of the chest was acquired. COMPARISON: Same day chest x-ray. FINDINGS: Surgical changes and devices: Endotracheal tube appears approximately 8 cm above the addison. Enteric tube projecting over the left upper quadrant appears in appropriate position. Lungs and pleura: Increased interstitial markings. Low lung volumes. Pulmonary vascular congestion. Mediastinum: Mediastinal contours appear normal. Heart size is enlarged. Bones and chest wall: No suspicious bony lesions. Overlying soft tissues appear unremarkable. IMPRESSION: 1. Findings concerning for CHF. 2. Endotracheal tube with tip terminating approximately 8 cm of the addison, recommend repositioning. Reviewed by: Phillip Diaz MD on 05/22/2025 7:44 PM PST Approved by: Phillip Diaz MD on 05/22/2025 7:44 PM PST Station ID: [id number]
--- NOTE | 2025-05-22 21:06 | POST OP PROGRESS NOTE ---
Subjective General Admit Date: 05/22/25 Procedure Date: 05/21/25 Post Op Days: 1 Surgery Impression Plan Problem List (1) Acute hypoxemic respiratory failure: (2) BRANDON (acute kidney injury): (3) Incarcerated umbilical hernia: (4) Troponin I above reference range: (5) SBO (small bowel obstruction): (6) Tracheomalacia:
--- NOTE | 2025-05-22 21:10 | ANESTHESIA PROCEDURE NOTE ---
Anesthesia Intubation Template Intubation Blade: positive Other (cook catheter exchange) Tube: Size-enter number (7.0 ID [id number]) and Cuffed Route: Nasal (sutured) Placement Confirmation: End tidal CO2, Direct visualization (fiberoptic), Bilateral breath sounds and Other Complications: Other (Previous ETT noted to be above cords with fiberoptic exam, tube was advanced to max length. Decision to exchange tube after discussion wit h RT, SANTA Lara. Duolingo cath used to exchange ETT for NRAE 7.5 without difficulty. )
--- NOTE | 2025-05-22 21:13 | MISCELLANEOUS PROVIDER NOTE ---
Miscellaneous Provider Note - Note: Called to room by RT, who noted that the Endotracheal tube had changed position. Cuff leak was noted, and widely varying tidal volumes Chest x-ray performed, which showed that the tube was at 8 cm above the addison I called the ACCREDITATION SPECIALIST to come evaluate. ETT exchange was performed by ACCREDITATION SPECIALIST x 2 with general surgeon on standby New tube has been sutured in place, and brief bronchoscopy was performed at bedside with some clearance of secretion Increased the max dose of the propofol order to 100 mcg/kg/min to promote ventilator compliance, added Levophed to support blood pressure Patient is now on 80 of propofol, has not required Levophed I notified the family immediately before tube exchange was performed, and then called them back after tube placement was verified to let them know everything went okay Wet read on repeat chest x-ray shows that ET tube is in correct position, awaiting official read from radiology SpO2 stable on vent, RT to perform ABG at 30 minutes after exchange
[2025-05-22] MEDS: CHLORHEXIDINE GLUCONATE 15 ML UDC PO SCH (21:17)
[2025-05-22] MEDS: FUROSEMIDE 40 MG/4 ML VIAL IVP SCH (21:17)
--- NOTE | 2025-05-22 21:18 | XRAY Report ---
PROCEDURE: XR Chest 1V INDICATIONS: NTT placement TECHNIQUE: One view of the chest was acquired. COMPARISON: Chest x-ray 05/22/2025. FINDINGS: Surgical changes and devices: Nasogastric tube tip is poorly visualized. A portion is felt to extend below the left hemidiaphragm although not well seen in its entirety. Endotracheal tube is poorly visualized. Right-sided central venous catheter is present distal tip projecting over the proximal SVC. Lungs and pleura: Poor inspiratory effort. Increased interstitial markings with increased pulmonary vascularity. Likely left effusion. Mediastinum: Mediastinal contours appear normal. Heart size is heart is enlarged. Bones and chest wall: No suspicious bony lesions. Overlying soft tissues appear unremarkable. IMPRESSION: Poor visualization of the endotracheal and nasogastric tubes as above. Increased interstitial markings with increased vascularity suggestive of edema. Reviewed by: Kesha Holliday MD on 05/22/2025 9:15 PM PST Approved by: Kesha Holliday MD on 05/22/2025 9:15 PM PST Station ID: [id number]
[2025-05-22] MEDS: PROPOFOL 200 MG/20 ML VIAL IVP ONE (21:37)
[2025-05-22 21:50] LABS: ABG MODE OF VENTILATION ASSIST/CONTROL
[2025-05-22 21:51] LABS: ABG FRACTION OF INSPIRED O2 100.00
[2025-05-22 21:52] LABS: ABG BASE EXCESS 7.7 mmol/L (-2.0-3.0); ABG HCO3 33.4 mmol/L (22.0-26.0); ABG OXYGEN SATURATION 97 % (95-98); ABG PCO2 59 mmHg (34-45); ABG PH 7.36 (7.35-7.45); ABG PO2 81 mmHg (83-108); ABG TCO2 35.2 mmol/L (21.0-29.0)
--- NOTE | 2025-05-22 23:46 | PROVIDER PROGRESS NOTE ---
Subjective General Admit Date: 05/22/25 Procedure Date: 05/21/25 Post Op Days: 1 Procedure Performed: Incarcerated incisional herniorrhaphy with mesh complicated by extremely di Other Other Information/Narrative: Please note that this note reflects the patient's condition when I saw him at [phone]. Wound Assessment Wound/Incisions: positive Drainage (Some bloody but not concerning) Review of Systems Patient is intubated and sedated. Exam Exam Vital Signs: Vital Signs x48h Temp Pulse Pulse Resp BP BP Pulse Ox 05/22/25 22:05 37.1 C 05/22/25 22:05 78 05/22/25 22:00 79 05/22/25 21:59 78 24 123/65 147/90 H 96 05/22/25 21:30 76 05/22/25 21:00 81 20 105/52 L 142/84 H 90 L 05/22/25 20:00 73 19 124/66 146/88 H 93 05/22/25 19:00 74 05/22/25 19:00 73 20 123/69 142/82 H 93 05/22/25 18:00 75 22 124/70 137/81 H 93 05/22/25 17:26 75 05/22/25 17:00 76 21 117/65 135/80 H 95 05/22/25 15:59 37.2 C 74 19 118/66 139/79 H 05/22/25 15:53 73 General: 50-year old morbidly obese male, intubated and sedated in Room 2303 of [facility] ICU HEENT: Nasotracheal tube in place sutured to his septum, the tube is "hubbed" at the nares, OG tube in place, very poor dentition missing multiple teeth, meadows arreola mustache, meadows hair Neck: Supple without crepitus Cardiac: Regular rate and rhythm without rub, gallop, or murmur but distant Chest: Crackles bilaterally anterolaterally, distant due to body habitus, I did not listen posteriorly Abdomen: Obese, doughy, positive but decreased bowel sounds, due to body habitus I cannot appreciate any hepatomegaly or splenomegaly, no recurrence of hernia, some blood on dressing but no more than yesterday Genitourinary: Deferred Rectal: Deferred Extremities: Positive edema bilaterally, calves are such that one SCD cannot fit Gait: Cannot and did no evaluate Psychiatric: Intubated and sedated ABX Reporting Has patient been on IV antibiotics over the past 48 hours?: Yes Impression/Plan Problem List (1) Acute hypoxemic respiratory failure: (2) BRANDON (acute kidney injury): (3) Incarcerated umbilical hernia: (4) Troponin I above reference range: (5) Tracheomalacia: Plan POD 1 s/p incarcerated umbilical hernia repair with mesh and partial omentectomy 1) FEN Currently receiving 125mL/hour of IVF in addition to riders. No evidence of bleeding. 2) Respiratory Information that was not known to me or anesthesia prior to the operation is that he suffered with bulemia as a child - had a lap band - and had complications requiring an operation which has still not been defined on his trachea. This information was obtained from the patient's who was not present in the ED or prior to surgery. Now knowing this information this provides an explanation as to why the patient was so difficult to intubate in addition to his obvious comorbidites of likely sleep apnea and morbid obesity. His also provided information regarding sleep paralysis. All of these combined have raised the concern regarding extubating this patient prematurely as if this occurs he would be very difficult to reintubate and he has a very thick short neck making an emergent cricothyroidotomy a very risky proposition. This is also a concern as the endotracheal tube that we have is "hubbed" at his nares (it cannot be placed deeper) and the balloon is just below the cords. I have already spoken with Hafsa Lara who would like a surgeon present at extubation. I have relayed this information to Dr. Rosado as I will be out of town. 3) Cardiac I ordered an ECHO on this patient because as soon as we were able to intubate this patient yesterday he dropped his pressure and desaturated. This brought up the possibility of sleep apnea resulting in increased pulmonary pressures and right sided heart failure. The ECHO is being done as I am evaluating the patient (I interrupted the tech to perform my examination). Results pending. 4) Pain Patient is heavily sedated (Propofol, Precedex, fentanyl) and should remain so out of fear of dislodging the endotracheal tube. Once we are assured that he can and will breath on his own we can wean back the sedation. 5) Wound The small amount of bloody drainage is not concerning. No evidence of recurrence. Note I believe that the family recently moved here from [place] and had not established themselves with a primary care physician. I state this as much of the background medical information is lacking. CPT 51900
[2025-05-23 05:12] LABS: VBG PH 7.375 (7.31-7.41)
[2025-05-23 05:17] LABS: HCT - HEMATOCRIT 36.0 % (42.0-52.0); HGB - HEMOGLOBIN 11.7 g/dL (14.0-18.0); MEAN PLATELET VOLUME 10.7 fL (7.4-11.4); NRBC ABSOLUTE COUNT (AUTO) 0.00 x10^3/uL; NUCLEATED RED BLOOD CELLS AUTO 0.0 /100WBC; PLT - PLATELET COUNT 168 10^3/uL (130-450); RED CELL DISTRIBUTION WIDTH 13.8 % (12.0-15.0)
[2025-05-23 05:38] LABS: PHOSPHORUS 4.6 mg/dL (2.5-5.0)
[2025-05-23 05:39] LABS: CHOL/HDL RATIO 4.1 (<5.0); LDL/HDL RATIO 1.5 (<3.6); VLDL CHOLESTEROL 52 mg/dL
[2025-05-23 05:40] LABS: ALT ALANINE AMINOTRANSFERASE 22.0 IU/L (10-60); AST ASPARTATE AMINOTRANSFERASE 56.0 IU/L (10-42); BUN - BLOOD UREA NITROGEN 21.0 mg/dL (6-20); CARBON DIOXIDE - CO2 27.0 mmol/L (21-32); CREATININE 1.4 mg/dL (0.6-1.3); GFR - MDRD 53.0 (>89)
--- NOTE | 2025-05-23 07:25 | PROVIDER PROGRESS NOTE ---
Subjective General Admit Date: 05/22/25 Procedure Date: 05/21/25 Post Op Days: 2 Procedure Performed: Incarcerated incisional herniorrhaphy with mesh Other Other Information/Narrative: Overnight patients nasotracheal tube became dislodged and required re- advancement. I was called to the bedside with anesthesia. It was felt at that time that the current nasotracheal tube was too short and needed to be exchanged for a longer nasal ray. Anesthesia exchanged the tube over a bougie and was immediated with good end tidal CO2. However, after this he was noted to have thick secretions coming from his tube, high peak pressures and saturations stuck in the mid 80's. Due to this I was asked to perform a stat bronchoscopy to evaluate the nasotracheal tube was in the correct position. During this I confirmed the nasotracheal tube in a good position above the addison but there was also thick secretions in either mainstem bronchus which the bronchoscope was used to irrigate and suction until clear. After the procedure he was found to have better saturations and lower peak pressures on the vent. This morning his saturations are improved in the low 90's, he otherwise continues to be intubated and sedated. Wound Assessment Wound/Incisions: positive Drainage (Some bloody but not concerning) Review of Systems Patient is intubated and sedated. Status of ROS: unobtainable due to endotracheal tube Exam Exam Vital Signs: Vital Signs x48h Temp Pulse Pulse Resp BP BP Pulse Ox 05/23/25 08:59 77 24 101/56 L 112/73 05/23/25 08:25 70 05/23/25 07:58 37.3 C 69 24 93/51 L 101/64 93 05/23/25 07:00 67 24 98/63 93 05/23/25 06:21 67 05/23/25 06:00 37.3 C 68 24 98/58 L 93 05/23/25 05:00 68 24 102/59 L 93 05/23/25 04:09 69 05/23/25 04:00 70 17 103/58 L 93 05/23/25 03:00 69 24 100/57 L 94 05/23/25 02:04 69 05/23/25 02:00 37.4 C 69 24 103/62 94 Constitutional no apparent distress and abnormal body habitus (obese) Sedated [facility] normocephalic and head/scalp atraumatic Eyes conjunctivae normal and no scleral icterus Neck/C-Spine visual inspection normal Chest palpation of chest normal Respiratory Vented Cardiovascular normal heart rate noted and regular rhythm noted Gastrointestinal Midline dressing with some saturation, abdomen otherwise protuberant, soft and no reaction on palpation. Extremities normal to inspection Neurology Sedated Skin skin color normal Impression/Plan Problem List (1) Acute hypoxemic respiratory failure: (2) BRANDON (acute kidney injury): (3) Incarcerated umbilical hernia: (4) Troponin I above reference range: (5) Tracheomalacia: Plan POD 1 s/p incarcerated umbilical hernia repair with mesh and partial omentectomy Neuro - Propofol gtt and precedex gtt for sedation - Fentanyl gtt for pain control - Adequately sedated in the room Resp - Vented: Vt 500, RR 20, PEEP 8, FiO2 100% - Recommend increase PEEP to 10 due to patients large body habitus, wean FiO2 as able - Consider repeat bronchoscopy if continued whiteout of left lung CVS - Soft BP this AM, possible from sedation, continue to monitor - HR WNL - Echo done; global normal heart function with EF 60-65 GI - Continue OGT - Consider TTF - Protonix for GI ppx - Maintain Kumar for strict Is&O's in critically ill - Recommend IVF to D5 1/2NS w/ [id number] - Agree w/ abx - Likely respiratory source, appropriate coverage - Continue monitor Heme - Lovenox for DVT ppx - Montitor Hgb, slow downtrend could be dilutional, no overt signs of bleeding Lines/Drains - Maintain Kumar for strict Is&O's in critically ill - Maintain TLC for critical illness and poor venous access - Maintain OGT while intubated This was discussed with the primary team.
[2025-05-23] MEDS: DEXTROSE 5%-0.45% NACL 1,000 ML IV STA (07:32)
[2025-05-23 07:38] LABS: ABG BASE EXCESS 11.3 mmol/L (-2.0-3.0); ABG FRACTION OF INSPIRED O2 100.00; ABG HCO3 35.7 mmol/L (22.0-26.0); ABG MODE OF VENTILATION ASSIST/CONTROL; ABG OXYGEN SATURATION 94 % (95-98); ABG PCO2 52 mmHg (34-45); ABG PH 7.44 (7.35-7.45); ABG PO2 70 mmHg (83-108); ABG RESPIRATORY RATE 24 b/min; ABG TCO2 37.3 mmol/L (21.0-29.0)
[2025-05-23 08:45] LABS: ESTIMATED AVERAGE GLUCOSE 111 mg/dL (70-100); HEMOGLOBIN A1c% 5.5 % (4.27-6.07)
[2025-05-23] MEDS: NOREPINEPHRINE/0.9 % NS 8 MG/250 ML BAG IV SCH (08:57)
[2025-05-23 12:34] LABS: ABG BASE EXCESS 13.4 mmol/L (-2.0-3.0); ABG HCO3 38.5 mmol/L (22.0-26.0); ABG OXYGEN SATURATION 94 % (95-98); ABG PH 7.39 (7.35-7.45); ABG PO2 71 mmHg (83-108)
[2025-05-23 12:35] LABS: ABG FRACTION OF INSPIRED O2 100.00; ABG MODE OF VENTILATION ASSIST/CONTROL; ABG RESPIRATORY RATE 14 b/min
[2025-05-23 12:36] LABS: ABG PCO2 63 mmHg (34-45)
[2025-05-23 12:37] LABS: ABG TCO2 40.5 mmol/L (21.0-29.0)
--- NOTE | 2025-05-23 14:44 | Discharge Summary ---
Discharge Summary Admit Date: 05/21/25 Discharge Date: 05/23/25 Discharging Provider: Jacoby Guerrero Primary Care Provider: None Code Status: Attempt Resuscitation Discharge Facility Name: [facility] DIAGNOSES Discharge Diagnoses with Status of Each Condition: ARDS Acute hypoxemic respiratory failure Patient sent with patient for his incarcerated hernia repair, below. Due to multiple factors, he had a prolonged intubation. No reports of significant hypoxemia during the intubation, but took upwards of an hour to successfully intubate which eventually required fiberoptic NTI. Since then, he has required high FiO2 with poor oxygenation. Evidence of pulmonary edema. PF ratio of 70-80. FiO2 coming down below Echo suggestive of high pulmonary pressures, but normal EF and diastolic function. No valvular abnormalities. - Transferring to [facility] with full-time microsoft crm developer and pulmonology support - Will transfer via ALS - Deep sedation with fentanyl, Versed, propofol - Cisatracurium not on formulary, will use rocuronium as a paralytic - On ceftriaxone and azithromycin - On twice daily IV Lasix 40 mg, remains effective - Monitor ABG, last @ 15:13 7.426/41.1/83.0 on 100% FiO2 ## BRANDON Improved. Last Cr 1.4 down from 1.7. Baseline creatinine normal - Monitor BID while diuresing ## NSTEMI Last HS Troponin 60 (20 is ULN for our lab). Has slowly increased from 21 post- operatively. No ischemic changes on EKG. ## Incarcerated hernia, s/p repair ## History of tracheomalacia S/p surgical hernia reduction with mesh placement on 05/21. Site is surgically dressed. Abdominal binder in place. No bowel was resected. Operative report follows: His intubation was extraordinarily difficult. Standard general endotracheal anesthesia could not be induced due to the patient's anatomy. Attempts with an LMA were unsuccessful. The patient was then subsequently awakened and Georgi Lam CRNA came to assist. With the aid of a small bronchoscope placed through the endotracheal tube the patient was then subsequently intubated nasotracheally. He initially coughed out the tube and the tube was replaced again using the aid of a small bronchoscope and the endotracheal tube was "hubbed" at the nares. In order to secure the tube this was sutured to the septum using a 2-0 silk suture. This was then subsequently Chucho sampled about the endotracheal tube. Once this occurred the patient then experienced a episode of hypoxia and hypotension. This improved with the administration of Levophed. He was also placed on 100% oxygen. His vitals slowly improved and it was the opinion of everyone in the room that he would be safer to proceed with the operation then to try and transfer him to a higher level of care. Hafsa Lara CRNA then sedated and anesthetized the patient for the entire procedure. The patient was prepped and draped in the usual sterile manner. A "time in" then confirmed that the patient was identified with 3 identifiers (name, date, and medical record number), the history and physical was updated and in the chart, the signed consent confirming the procedure was in the chart, the patient was in the correct position, the aforementioned prophylactic measures were in place or given, we had the correct personnel and equipment to complete the procedure and that anesthesia and the surgical team were given an opportunity to express any concerns. With the agreement of everyone in the room we proceeded with the operation. An elliptical incision was made over the hernia the excess skin was removed from the hernia using Bovie electrocautery. With the skin off the hernia sac was right there. Hemostasis was obtained using Bovie electrocautery. The sac was opened and there was a large amount of omentum with distended veins and a portion of the transverse colon and the hernia sac. Please note that the hernia sac was very large measuring 15 x 16 x 17 cm. It was clear that trying to reduce the hernia contents through a small 4 x 4 cm hole would be impossible and as such I opted to resect a large portion of the omentum using serial application of the LigaSure. With less tissue having to go through the hernia defect I was able to reduce first the transverse colon and then the remaining omentum back through the defect into the abdomen and hold this in place using sponge sticks. The very large hernia sac was then dissected back to the fascial defect and excised. The fascial defect measured 4 cm transversely and 4 cm superoinferiorly. The defect was slightly superior to the umbilicus. The fat in the true umbilical hernia was transected using the Ligasure. Bovie electrocautery was then used to define the fascial defect trimming additional tissue back to the fascia proper. A swipe of the anterior abdominal wall ensured that there was no tissue adherent to the anterior abdominal wall and at this point a [address] ST hernia patch size 13.8 cm x 17.8 cm (Reference #[id number], lot number [id number], use by date 2025-08-26)was placed into the hernia defect transversely and sutured in place circumferentially with 2-0 Vicryl suture. This allowed for overlap of the mesh to the hernia defect superiorly inferiorly and transversely. The reason that I placed this transversely as I felt that the greatest strain on the wound would be transversely. Digital examination of the repair did not reveal any skipped areas. I then resected an additional 7 cm skin on the patient's left-hand side to allow for a more cosmetic curvilinear closure. This was done primarily using Bovie electrocautery. Hemostasis was obtained using Bovie electrocautery. I placed sutures to line up the skin having a distance twice in order to place skin sophie. Once the sophie were in place the sutures were removed. At this point a timeout was performed that confirmed that all counts were correct x2, the procedure that was performed, the blood loss, the IV fluids administered, the patient's condition, and any concerns of the operating team had. Dressings were applied and having tolerated the procedure well, the patient was taken to the intensive care unit. It should be noted that during the performance of this surgery as well as afterwards the patient had a nasogastric tube placed, Kumar placed, central line placed. And due to the difficulties with his intubation and control of his blood pressure it was felt to be much safer to admit him to the intensive care unit. Please note that the aforementioned procedures were either performed by anesthesia or nursing. Additionally once the patient is fully awake and prior to extubation he should have an abdominal binder placed to distribute the pressure and decrease likelihood of wound dehiscence or evisceration. Today's documentation has been created with the assistance of voice recognition software. Therefore, it may contain anomalous punctuation, anomalous independent mis-recognitions, word substitutions, insertions or omissions. Occasional wrong-word or phonetically similar substitutions may also occur all due to the inherent limitations of voice recognition software. I have attempted to correct the above but I recommend that the chart be read carefully to recognize, using context, where the substitutions, insertions or omissions may have occurred. HPI History of Present Illness: HPI per Dr. Bustos's original surgical consultation: Patient is a very pleasant 50-year-old male who is evaluated in room 9 at [facility] emergency room at the request of Dr. Layton Marques for an incarcerated umbilical hernia. The patient's been aware of the umbilical hernia for approximately 20 years and he has always been able to push it back in but yesterday he was unable to do so. The inability to push the hernia back in became associated with abdominal pain. There is been no nausea and vomiting. 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 He states up until about a year and 100 days ago he used to smoke a large amount of pot. He developed psychosis as a result. He also admits to being bipolar. He is concerned about taking his medications. I explained that he will be given his medications here in the hospital. He has never been a cigarette smoker. He drank alcohol in the past but he states that not to any great degree. He is also part of [employer] HPI per Dr. Laurent's original medical consultation: This was a relatively urgent/emergent case. He presented to the emergency department with abrupt onset of umbilical pain at hernia site. Apparently he has a longstanding umbilical hernia and is used to pushing it back in but this time he could not. The pain was getting increasingly worse so he brought himself to the emergency room approximately midnight. From there he is care was turned over to Dr. Minor who then called general surgery. He was afebrile at 36.9. Heart rate 101. Respirations 22. Blood pressure 194/133. He is a superobese uncomfortable white male according to the ER notes. Normal respiration. Normal heart rate. Morbidly obese abdomen with a large midline hernia around the area of the umbilicus with larger protrusion. The hernia sac was soft and palpably full of bowel. Unable to reduce or find the hernia opening. White cell count was 6.2, hemoglobin 15.1. Troponin 18.5. BUN/creatinine normal. CT of the abdomen was done and reviewed by 1030 this morning. He has a ventral periumbilical hernia with a loop of colon suggesting obstruction. General surgery saw the patient. The OR team called in for after- hours case. This is where it became quite urgent. He is superobese, thick neck, and 2 attempts were made at endotracheal intubation. With these attempts, he became hypotensive in the 60s systolic. Difficult to ventilate but not successfully intubated. Another attempt was made in this time through nasotracheal intubation. He was temporarily on Levophed. Taken to the OR and able to come off Levophed, and airway maintained. In the OR he was found to have an incarcerated umbilical hernia with colon on the omentum in the hernia sac causing bowel obstruction. He underwent an umbilical herniorrhaphy, and a mesh placed. He had a 4 x 4 centimeter defect. The hernia sac itself measured 16 cm in height, 17 cm in width and approximately 15 cm in depth. I did also get a history from his . He has been 4 times and he and his just moved to this area a year ago. He describes him as having severe bulimia as a teenager. 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 They discovered this when he had a Lap-Band procedure about 20 years ago. He had difficulty with intubation and they actually had to do some tracheal surgery to repair of the trachea around the time of that Lap- Band. He is from [facility]. They moved here about a [place] ago [place] [facility] was getting very stressful for his mental health and it is much quieter here on the [place]. He was seeing his mental health provider on a regular basis until very recently. He has to get new insurance and a new primary care provider. He has no history of recreational substance abuse. On review of systems he has the tracheal issue as above. He has chronic dyspnea on exertion and cannot walk very far before he gets short of breath. But no history of cardiac disease nor does he have a history of congestive heart failure. He has no problems with his lungs in the form of asthma or emphysema. He does not cough on a regular basis nor does he have phlegm. His medication for his mental illness leaves him severely constipated. So when he stopped going to the bathroom 3 days ago they thought it was his medications. Did did not realize that his increasing distention, abdominal pain was the bowel obstruction. He took 16 different doses of laxative in the last 2 days. He has occasional urinary incontinence. Increasing frequency of stream. Joint pain is mainly in his knees and he will "yelp" when he gets out of a chair. Legs are huge, large, and they always look swollen to her. He has no history of falls, seizures, suicidal ideation. She thinks his memory is okay. He is completely independent with activities of daily living. Upon transfer from OR to ICU, the patient was pulling on lines, and needed several doses of propofol 100 mg to maintain sedation. We then added Precedex, and fentanyl and he has been sedated since then and I have ordered 2-point restraints of the upper extremity. CONSULTS | PROCEDURES Consultations: General Surgery Procedures: Incarcerated umbilical hernia repair 05/21 at 10:30 Multiple CXR between 05/21-05/23 TTE completed 05/22 HOSPITAL COURSE Hospital Course: Patient was intubated during procedure, was never successfully extubated. He has remained on high FiO2. He has evidence of ARDS on chest x-ray. No evidence of heart failure on echocardiograph. He would likely has a background history of of pulmonary hypertension. He likely aspirated during his prolonged intubation. He additionally had an isolated episode of fever on 05/22. He has been started on ceftriaxone and azithromycin. In addition to the above, he is found to have a slowly rising high sensitive troponin. No evidence of ischemia on EKG. Last at bedtime troponin was 64.5. Given the limited resources at this critical access hospital, discussed with microsoft crm developer at [facility] who graciously accepted the patient for transfer for full-time microsoft crm developer management, pulmonology. His care was also limited by the the need for special bariatric care given his habitus. On the day of discharge, patient was seen and evaluated. Extensive efforts were made in consultation with respiratory therapy here as well as the microsoft crm developer at the accepting institution to optimize his status prior to discharge. He is being paralyzed prior to discharge with rocuronium. We are continuing to try and increase his PEEP to promote recruitment. Patient is full code. Discussed this plan of care with his , Fantasma, prior to initiating transfer. ALLERGIES Allergies Allergy/AdvReac Type Severity Reaction Status Date / Time No Known Drug Allergies Allergy Verified 05/21/25 07:22 MEDICATIONS Ambulatory Orders Medication Instructions Recorded Confirmed carbamazepine 200 mg tablet See Rx Instructions .Route .COMPLEX 05/09/24 05/22/25 duloxetine 30 mg capsule,delayed 60 mg (2 x 30 mg) PO DAILY #60 caps 03/16/25 05/22/25 release fluvoxamine 100 mg tablet 200 mg (2 x 100 mg) PO DAILY #60 03/16/25 05/22/25 tabs hydroxyzine HCl 25 mg tablet 25 mg PO DAILY 05/22/25 1 07/22/24 quetiapine 300 mg tablet (Seroquel) 600 mg PO HS 05/2205/22/25 PHYSICAL EXAM AT DISCHARGE Vital Signs: Vital Signs x48h Temp Pulse Pulse Resp BP BP Pulse Ox 05/23/25 15:00 67 24 109/33 L 119/70 95 05/23/25 14:46 72 05/23/25 14:00 73 24 112/53 L 120/71 93 05/23/25 13:00 77 30 H 151/84 H 141/86 H 91 L 05/23/25 12:00 37.2 C 75 24 113/54 L 114/75 91 L 05/23/25 11:00 76 05/23/25 11:00 77 25 H 123/58 L 121/80 93 05/23/25 10:00 79 25 H 133/68 H 132/86 H 91 L 05/23/25 08:59 77 24 101/56 L 112/73 05/23/25 08:25 70 05/23/25 07:58 37.3 C 69 24 93/51 L 101/64 93 LABS 05/23/25 04:45 05/23/25 04:45 DIAGNOSTIC IMAGING Diagnostic Imaging Results: Final report reviewed and Read independently Diagnostic Imaging Results Comments: CXR 05/23: Lines and tubes in good position. Cardiomegaly, moderate vascular congestion and bibasilar pleural effusions similar to prior CXR 05/22: Poor visualization of the endotracheal and nasogastric tubes as above. Increased interstitial markings with increased vascularity suggestive of edema. TTE 05/22: Global left ventricular systolic function is normal. The visual left ventricular ejection fraction is estimated at 60 to 65%. There is moderate asymmetric septal hypertrophy. The right ventricular systolic function is normal. No concerning cardiac valve disease is noted. The pulmonary artery is normal size. Unable to evaluate RA pressure from IVC dynamics; however the pulmonary artery systolic pressure is likely 30 mmHg plus central venous pressure. TIME SPENT Time Spent in Discharge (Minutes): 62 Discharge Plan Discharge Patient Disposition: 02 Transfer Acute Care Hosp Condition: Serious Prescriptions: No Action carbamazepine 200 mg tablet See Rx Instructions .ROUTE .COMPLEX Rx Instructions: 5T (1,000mg) PO QAM AND 2T PO QPM; fluvoxamine 100 mg tablet 200 mg PO DAILY Qty: 60 1RF duloxetine 30 mg capsule,delayed release(DR/EC) 60 mg PO DAILY Qty: 60 1RF hydroxyzine HCl 25 mg tablet 25 mg PO DAILY quetiapine [Seroquel] 300 mg tablet 600 mg PO HS Activity Restrictions: No Restrictions Print Language: Gabonese Vitals documented within 30 minutes of discharge?: No (Patient taken to surgery prior to vital signs)
[2025-05-23] MEDS: MIDAZOLAM DRIP 50 MG/50 ML 50 MG/50 ML BAG IV SCH (14:57)
[2025-05-23] MEDS ORDERED: CISATRACURIUM BESYLATE 100 MG in SODIUM CHLORIDE 0.9% 200 ML IV SCH (15:00)
--- NOTE | 2025-05-23 15:05 | XRAY Report ---
PROCEDURE: XR Chest 1V INDICATIONS: Hypoxemic resp failure, ventilated TECHNIQUE: Single frontal view of the chest was obtained COMPARISON: 05/22/2025 FINDINGS: Instrumentation: Endotracheal tube 1.9 cm above the addison. Nasogastric tube in the stomach. Right IJ central venous line tip in the upper SVC. Heart size is enlarged. Moderate vascular congestion. Obscuration of both hemidiaphragms. Osseous structures: Unremarkable IMPRESSION: Lines and tubes in good position. Cardiomegaly, moderate vascular congestion and bibasilar pleural effusions similar to prior Reviewed by: Mason Templeton MD on 05/23/2025 2:02 PM AKST Approved by: Mason Templeton MD on 05/23/2025 2:02 PM AKST Station ID: [id number]
[2025-05-23 15:15] LABS: ABG BASE EXCESS 2.7 mmol/L (-2.0-3.0); ABG HCO3 27.3 mmol/L (22.0-26.0); ABG OXYGEN SATURATION 97 % (95-98); ABG PCO2 41 mmHg (34-45); ABG PH 7.43 (7.35-7.45); ABG PO2 83 mmHg (83-108); ABG TCO2 28.5 mmol/L (21.0-29.0)
[2025-05-23 15:17] LABS: ABG FRACTION OF INSPIRED O2 100.00; ABG MODE OF VENTILATION PC; ABG RESPIRATORY RATE 24 b/min
[2025-05-23 16:03] VITALS: TEMP 99.7; O2SAT 99
[2025-05-23] MEDS: ROCURONIUM 500 MG in SODIUM CHLORIDE 0.9% 100ML 50 ML IV SCH (16:34)
[2025-05-23] MEDS: ROCURONIUM 50 MG/5 ML VIAL IVP ONE (16:35)
[2025-05-23 17:13] VITALS: BP 115/72
== END 2025-05-23 17:08 | disposition short-term general hospital (02) | DRG 987 ==
LOC: SUATTDRO → ED 00:44 → SDS 10:54 → ICU 16:13
PROVIDERS: ADMIT Student in an Organized Health Care Education/Training Program; ATTEND Student in an Organized Health Care Education/Training Program
DX: J69.0 Pneumonitis due to inhalation of food and vomit; J39.8 Other specified diseases of upper respiratory tract; E66.01 Morbid (severe) obesity due to excess calories; N17.9 Acute kidney failure, unspecified; F31.9 Bipolar disorder, unspecified; K42.0 Umbilical hernia with obstruction, without gangrene; I21.4 Non-ST elevation (NSTEMI) myocardial infarction; Z78.1 Physical restraint status; R32 Unspecified urinary incontinence; Z68.43 Body mass index [BMI] 50.0-59.9, adult; J80 Acute respiratory distress syndrome